=== PATIENT | female | born 1945 | race Caucasian/White ===

== ENCOUNTER 2016-07-03 13:48 | Emergency (ER) | payer MEDICARE ==
[2015-01-31 12:58] VITALS: BMI 30.2
[~2016-07-03 13:48] MED LIST: ALBUTEROL2.5 MG/3 M INH; ATROVENT 0.03%30 ML NS; BACLOFEN20 M1 PO; BAYER CHEWABLE81 MG PO; BUMEX 1 MG TAB1 MG PO; BUMEX2 MG PO; COUMADIN4 MG PO; ELAVIL25 MG PO; EZFE 200200 MG PO; FISH OIL 1,0001 CA1 PO; K-DUR20 MEQ PO; LANTUS SOL100 UNIT/1 SC; LANTUS SOL100 UNIT/1 SQ; LEVAQUIN750 MG PO; LEVOTHROID50 MCG PO; LEXAPRO20 MG PO; LISINOPRIL10 MG PO; MICRO-K10 MEQ PO; OS-CAL500 MG PO; OYSCO 500+D TAB1 TAB PO; PAMELOR 25 MG C25 MG PO; PRAVACHOL40 MG PO; TOPAMAX25 MG PO; TOPIRAGEN50 MG PO; TOPROL XL50 MG PO; TRAVATAN Z2.5 ML EACH EYE; VITAMIN B-1250 MCG PO; VITAMIN D31000 UNIT PO
[2016-07-03 15:52] LABS: BASOPHILS 0.5 % (0.0-2.0); EOSINOPHILS 2.2 % (0-7); HEMOGLOBIN 11.1 g/dL (12-16); IMMATURE GRANULOCYTES 0.3 % (0-5); LYMPHOCYTES 15.9 % (15-50); MCH 28.7 pg (26.0-34.0); MCHC 30.8 g/dL (31.0-37.0); MEAN PLATELET VOLUME 11.7 fL (7.4-10.4); MONOCYTES 6.7 % (2-11); NEUTROPHILS 74.4 % (40-80); PLATELET COUNT 209 10x3/uL (130-400); RBC 3.87 10x6/uL (4.00-5.40); RDW 16.4 % (11.5-14.5); WBC 11.6 10x3/uL (4.8-10.8)
[2016-07-03 16:10] LABS: ALBUMIN 3.5 g/dL (3.4-5.0); ANION GAP 12.4 mmol/L (8-16); BILIRUBIN - TOTAL 0.4 mg/dL (0.2-1.3); CARBON DIOXIDE 28.1 mmol/L (21.0-32.0); CREATININE - SERUM 1.4 mg/dL (0.6-1.3); POTASSIUM - SERUM 4.5 mmol/L (3.5-5.1); PROTEIN - SERUM 6.9 g/dL (6.4-8.2)
== END 2016-07-03 17:20 | disposition home or self-care (01) ==
LOC: D.ER 13:48
PROVIDERS: Emergency Medicine
DX: R53.1 Weakness (principal); J44.9 Chronic obstructive pulmonary disease, unspecified; I10 Essential (primary) hypertension; E11.9 Type 2 diabetes mellitus without complications; Z79.4 Long term (current) use of insulin

== ENCOUNTER 2017-01-24 11:32 | Inpatient (IN) | payer MEDICARE ==
--- NOTE | ~2017-01-24 | HEMODYNAMI ---
PATIENT:NURA EATON MEDICAL RECORD: [id number] : 43 [facility] AD[facility] DATE: 01/24/17 Generatedon:01/25/20179:53 Patient name: NURA EATON Patient #: [id number] SSN: : 1945 Date of study: 01/25/2017 Page: Of Hemodynamic Procedure Report Patient Data Patient Demographics Procedure consent was obtained First Name: NURA Gender: Female Last Name: ANGELITO : 1945 [facility] Initial: THEA Age: 71 year(s) Patient #: [id number] Race: Unknown Additional ID: [id number] Contact details [address]: [address] [place] [address] [address] State: [place] City: [place] Zip code: [address] Past Medical History Allergies Allergen Reaction Date Comments Reported Penicillins 01/25/2017 Sulfa drugs 01/25/2017 Admission Admission Data Admission Date: 01/24/2017 Admission Time: 11:32 Room #: D.2108 Procedure Procedure Types Cath Procedure Peripheral Cath Diagnostic Procedure Cath Peripheral Abd/Extremity Extremities Bilat Lower Extremity Procedure Description Procedure Date Procedure Date: 01/25/2017 Procedure Start Time: 8:07 Procedure Staff Name Function Jhoana Alberto RT Family Assistant Jhoana Alberto RT Monitor Santi Escobedo RT Scrub Luca Tabares MD Performing Physician Iona Alvarez RN Nurse Procedure Data Cath Procedure Fluoroscopy Diagnostic fluoroscopy Total fluoroscopy Time: 8.5 time: 8.5 min min Diagnostic fluoroscopy Total fluoroscopy dose: dose: 1168 mGy 1168 mGy Contrast Material Contrast Material Type Amount (ml) Isovue 300 185 Entry Location Entry Primary Successful Side Size Upsize Upsize Entry Closure Succes sful Closure Location (Fr) 1 (Fr) 2 (Fr) Remarks Device Remarks Femoral Right 5 Fr artery Femoral Exoseal artery Diagnostic catheters Device Type Used For End Catheter Placement Merit ULTRA BOLUS FLUSH 5Fr 65CM catheter Procedure Medications Medication Administration Route Dosage Lidocaine 1% added to field 20 Oxygen NC 3 l/min Heparin Flush Bag added to field 3 (1000units/500ml NS) Hemodynamics Rest Snapshots Pre Cath Intra NCS Post Cath Vital Signs Time Heart Resp SPO2 NIBP (mmHg) Rhythm Pain Sedation Rate (ipm) (%) Status Level (bpm) 7:51:10 60 20 100 Measuring NSR 0 (11) 10(A) , No pain 7:51:57 59 27 100 194/67(139) NSR 0 (11) 10(A) , No pain 7:56:30 57 18 100 180/71(150) NSR 0 (11) 10(A) , No pain 8:01:02 65 17 100 185/68(138) NSR 0 (11) 10(A) , No pain 8:05:41 57 19 100 169/66(128) NSR 0 (11) 10(A) , No pain 8:10:17 55 23 100 172/59(117) NSR 0 (11) 10(A) , No pain 8:14:47 56 18 100 150/52(112) NSR 0 (11) 10(A) , No pain 8:19:04 98 128/58(91) NSR 0 (11) 10(A) , No pain 8:23:20 59 14 98 123/53(86) NSR 0 (11) 10(A) , No pain 8:27:42 60 10 97 115/49(78) NSR 0 (11) 10(A) , No pain 8:31:56 58 14 97 113/51(87) NSR 0 (11) 10(A) , No pain 8:36:14 56 15 97 121/49(83) NSR 0 (11) 10(A) , No pain 8:40:30 59 14 96 110/52(89) NSR 0 (11) 10(A) , No pain 8:44:46 56 15 98 118/48(92) NSR 0 (11) 10(A) , No pain 8:49:04 57 15 99 122/50(87) NSR 0 (11) 10(A) , No pain 8:53:24 57 17 100 134/50(92) NSR 0 (11) 10(A) , No pain 8:57:44 59 6 100 141/64(104) NSR 0 (11) 10(A) , No pain 9:02:08 60 15 100 158/63(112) NSR 0 (11) 10(A) , No pain 9:06:31 62 15 100 120/54(85) NSR 0 (11) 10(A) , No pain 9:10:51 61 14 99 121/51(93) NSR 0 (11) 10(A) , No pain 9:15:11 61 15 98 112/48(82) NSR 0 (11) 10(A) , No pain 9:19:25 61 15 100 122/50(79) NSR 0 (11) 10(A) , No pain 9:23:39 60 14 100 107/50(76) NSR 0 (11) 10(A) , No pain 9:27:53 61 15 100 123/50(90) NSR 0 (11) 10(A) , No pain 9:32:07 100 107/50(77) NSR 0 (11) 10(A) , No pain 9:36:25 98 106/41(76) NSR 0 (11) 10(A) , No pain Medications Time Medication Route Dose Verified Delivered Reason Notes Effec tiveness by by 8:00:19 Lidocaine 1% added 20ml Iona Segovia for local to vial Antonio Tabares MD anesthetic field RN 8:00:42 Oxygen NC 3 Iona Iona used for l/min Antonio Alvarez water pollution control inspector RN 8:00:51 Heparin Flush added 3BAGS Iona Segovia used for Bag to Antonio Tabares MD procedure (1000units/500ml field RN NS) Procedure Log Time Note 7:10:13 Use device set IR Diagnostic 7:37:36 Micropuncture VSI 4FR kit opened to sterile field. 7:37:37 Robin DOC .035 guide wire opened to sterile field. 7:37:38 Terumo 5Fr Reagan Sheath opened to sterile field. 7:37:41 Robin ORTIZ 260 guide wire opened to sterile field. 7:37:42 Sterile Angiographic Pack opened to sterile field. 7:37:43 Bag Decanter opened to sterile field. 7:37:44 Acist Manifold opened to sterile field. 7:37:45 Acist Hand Control opened to sterile field. 7:37:46 Acist Syringe opened to sterile field. 7:38:27 Time tracking: Regular hours 7:38:37 Plan of Care:Hemodynamics will remain stable., Cardiac rhythm will remain stable., Comfort level will be maintained., Respiratory function will remain adequate., Patient/ family verbilizes understanding of procedure., Procedure tolerated without complication., Recovers from procedure without complications.. 7:38:48 Patient received from Med II to IR Alert and oriented. Tansferred to table in Supine position. 7:38:53 Signed procedure consent form obtained from patient. 7:38:59 H&P Date Dictated: 01/25/2017 Within 30 days and on chart.. 7:39:04 Family in waiting room. 7:39:07 Patient NPO since Midnight. 7:39:35 Is the patient allergic to Iodine/contrast media? No. 7:39:51 Is patient on blood thinner?Yes 7:42:04 7:42:05 ----Pre-sedation anethsthesia assessment.---- 7:42:07 Snore? Yes 7:42:12 Dentures? Yes ? 7:42:47 Patient diabetic? Yes. 7:42:54 If diabetic: On Metformin? No 7:43:23 Sleep apnea? No 7:43:26 Deviated septum? No 7:43:30 Opens mouth fully? Yes 7:43:32 Sticks out tongue? Yes 7:43:41 Airway obstruction? No ? 7:43:49 IV patent on arrival in left hand with 0.9% NaCl at [facility]. 7:44:03 7:44:11 Right groin area was prepped with chlora-prep and draped in sterile fashion 7:44:20 Left groin area was prepped with chlora-prep and draped in sterile fashion 7:45:05 Patient allergic to Penicillins 7:45:13 Patient allergic to Sulfa drugs 7:45:15 7:49:19 ECG and BP/O2 sat monitors applied to patient. 7:49:20 Vital chart was started 7:49:21 Baseline sample Acquired. 7:49:23 7:49:23 Full Disclosure recording started 7:54:40 A [employer] ULTRA BOLUS FLUSH 5Fr 65CM catheter was advanced over the wire and used for . 8:00:19 Lidocaine 1% 20ml vial added to field was administered by Luca Tabares MD; for local anesthetic; 8:00:42 Oxygen 3 l/min NC was administered by Iona Alvarez RN; used for procedure; 8:00:51 Heparin Flush Bag (1000units/500ml NS) 3BAGS added to field was administered by Luca Tabares MD; used for procedure; 8:04:32 Physician arrived 8:05:51 --------ALL STOP TIME OUT------ 8:05:52 Final Timeout: patient, procedure, and site verified with staff and physician. All members of the team are in agreement. 8:07:28 Physical assessment completed. ASA score P 3 - A patient with severe systemic disease as per Luca Tabares MD. 8:07:34 Sedation plan: IV Moderate Sedation Versed, Fentanyl 8:07:42 Procedure started. 8:07:46 Local anesthetic to right femoral artery with Lidocaine 1% by Luca Tabares MD.INITIAL ACCESS ONLY 8:12:03 Arterial access obtained using ultrasound guidance. 8:12:20 A 5 Fr sheath was inserted into the Right Femoral artery 8:15:56 Terumo ANGLE 260cm glide wire opened to sterile field. 8:17:02 Terumo TORQUE DEVICE PLASTIC .038 opened to sterile field. 8:18:18 Terumo 5FR ANGLED 65CM glide catheter opened to sterile field. 8:21:07 Trailblazer 0.035 catheter opened to sterile field. 8:26:39 Angiography was performed. 8:29:46 BasixTOUCH Inflation Syringe opened to sterile field. 8:29:47 Terumo 5Fr Reagan Sheath opened to sterile field. 8:37:02 Inflation number: 1 A Cordis Powerflex Pro 4.0 x 40 x 135cm balloon was prepped and advanced across the Undefined lesion 1 on undefined graft 1, then inflated to 18 MARBELLA for 0:10 (min:sec). 8:43:28 Terumo 7Fr Reagan Destination Sheath opened to sterile field. 8:50:36 Terumo ANGLE 180L glide wire opened to sterile field. 9:28:33 Terumo 5Fr Reagan Sheath opened to sterile field. 9:28:46 Cordis 5Fr Exoseal opened to sterile field. 9:30:33 Sheath removed intact; hemostasis achieved with Exoseal to the Femoral artery. 9:30:33 A sheath was inserted into the Femoral artery 9:30:46 Procedure ended.(Physican Out) 9:32:14 Fluoroscopy time 08.50 minutes. 9:32:23 Fluoroscopy dose: 1168 mGy 9:32:23 Flurop Dose total: 1168 9:32:29 Contrast amount:Isovue 300 185ml. 9:32:30 Sharps counted by scrub and verified by R.N. 9:32:32 Procedure and supply charges have been captured, reviewed, submitted and are correct. 9:38:19 Vital chart was stopped 9:38:23 Full Disclosure recording stopped Intervention Summary Intervention Notes Time ActionType Lesion and Equipment Action# Pressure Duration Attributes Used 8:37:02 Inflate Undefined Cordis 1 18 00:10 balloon lesion 1 on Powerflex undefined Pro 4.0 x graft 1 40 x 135cm balloon Device Usage Item Name Manufacture Quantity Catalog Number Hospital Part Current Min imal Lot# / Charge Number Stock Stock Serial# Code Micropuncture VSI VASCULAR 1 [id number] 5 VSI 4FR kit SOLUTIONS Cook DOC .035 [facility] 1 D82041 901880 706076 5 [id number] guide wire Terumo 5Fr Terumo 2 [id number] 292485 908959 176849 40 Reagan Sheath Cook ORTIZ [facility] 1 C77403 586010 012512 5 [id number] 260 guide wire Sterile Cardinal 1 [id number] 136557 521826 5 Angiographic Health Pack Bag Decanter Microtek 1 2002S 603787 29975 278039 5 Medical Inc[employer] Acist Acist 1 96343 298664 401448 674251 5 Manifold [employer] Systems Inc Acist Hand Acist 1 67996 194426 268328 071704 5 Control Medical Systems Inc Acist Syringe Acist 1 03048 507203 126557 408859 20 Medical Systems Inc Merit ULTRA Merit 1 [id number] 361275 659709 5 BOLUS FLUSH Medical 5Fr 65CM catheter Terumo ANGLE Terumo 1 IB4752 403046 866774 382496 5 260cm glide wire Terumo TORQUE [place] 1 TD01 274735 562383 850066 5 DEVICE Scientific PLASTIC .038 Terumo 5FR Terumo 1 CG507 257700 673095 5 ANGLED 65CM glide catheter Trailblazer Medtronic 1 ASC-035-135 450530 99200 455028 5 0.035 [facility] Merit 1 BD6121 852014 234829 029942 5 Inflation Medical Syringe Cordis Cardinal 1 [id number] 401707 698039 564515 5 Powerflex Pro Health 4.0 x 40 x 135cm balloon Terumo 7Fr Terumo 1 RSR04 701852 685768 331986 5 Reagan Destination Sheath Terumo ANGLE Terumo 1 HB4236 053219 752467 252485 5 180L glide wire Cordis 5Fr Cardinal 1 EX500 919410 497517 810438 10 [id number] [facility] Signature Audit [place] Stage Time Signature Unsigned Intra-Procedure 01/25/2017 [facility] 9:38:15 AM RT(R) (R) (CV) 01/25/2017 9:51:59 AM Intra-Procedure 01/25/2017 Jhoana Alberto 9:53:26 AM RT(R) Signatures Monitor : Jhoana Alberto RT Signature : Date : Time : [facility] [address] [place] [address]
--- NOTE | ~2017-01-24 | HEMODYNAMI ---
PATIENT:NURA EATON MEDICAL RECORD: [id number] : 43 LOCATION:[facility] [address] [id number] ADMISSION DATE: 01/24/17 Generatedon:01/29/201712:53 Patient name: NURA EATON Patient #: [id number] SSN: : 1945 Date of study: 01/29/2017 Page: Of Hemodynamic Procedure Report Patient Data Patient Demographics Procedure consent was obtained First Name: NURA Gender: Female Last Name: ANGELITO : 1945 Middle Initial: THEA Age: 71 year(s) Patient #: [id number] Race: Unknown Additional ID: [id number] Contact details Address: [address] [place] [address] [address]REET State: [place] City: [place] Zip code: [address] Past Medical History Allergies Allergen Reaction Date Comments Reported Penicillins 01/25/2017 Sulfa drugs 01/25/2017 Admission Admission Data Admission Date: 01/24/2017 Admission Time: 15:55 Room #: D.CV08 Procedure Procedure Types Cath Procedure Peripheral Cath Diagnostic Procedure Miscellaneous Procedure Description Procedure Date Procedure Date: 01/29/2017 Procedure Start Time: 12:32 Procedure Staff Name Function Gumaro Sierra MD Performing Physician Bertha Bernard RT Scrub Iona Alvarez RN Nurse Santi Escobedo RT Monitor Procedure Data Cath Procedure Fluoroscopy Diagnostic fluoroscopy Total fluoroscopy Time: 19 time: 19 min min Diagnostic fluoroscopy Total fluoroscopy dose: 357 dose: 357 mGy mGy Contrast Material Contrast Material Type Amount (ml) Isovue 300 85 Procedure Medications Medication Administration Route Dosage Versed I.V. 1 mg Fentanyl I.V. 50 mcg Heparin Bolus I.V. 4000 units Nitroglycerin IC/IA I.A. 250 Vancomycin I.V.P.B 500 mg Versed I.V. 1 mg Fentanyl I.V. 50 mcg Nitroglycerin IC/IA I.A. 200 Versed I.V. 0.5 mg Fentanyl I.V. 25 mcg Versed I.V. 0.5 mg Fentanyl I.V. 25 mcg Versed I.V. 1 mg Fentanyl I.V. 50 mcg Hemodynamics Rest Heart Rate: 71 (bpm) Snapshots Pre Cath Intra NCS Post Cath Vital Signs Time Heart Resp SPO2 NIBP (mmHg) Rhythm Pain Sedation Rate (ipm) (%) Status Level (bpm) 10:45:31 70 14 100 Measuring NSR 0 (11) 10(A) , No pain 10:45:54 70 19 100 185/74(136) NSR 0 (11) 10(A) , No pain 10:50:24 67 14 100 172/72(121) NSR 0 (11) 10(A) , No pain 10:54:53 70 18 100 172/70(120) NSR 0 (11) 10(A) , No pain 10:59:15 69 26 100 163/69(121) NSR 0 (11) 10(A) , No pain 11:04:14 66 11 100 Measuring NSR 0 (11) 10(A) , No pain 11:04:53 69 18 100 155/64(118) NSR 0 (11) 10(A) , No pain 11:09:17 69 16 100 153/70(112) NSR 0 (11) 10(A) , No pain 11:13:39 77 98 145/65(103) NSR 0 (11) 10(A) , No pain 11:18:03 98 138/59(100) NSR 0 (11) 10(A) , No pain 11:22:24 69 15 98 121/55(92) NSR 0 (11) 10(A) , No pain 11:26:40 70 14 97 105/51(79) NSR 0 (11) 10(A) , No pain 11:30:48 70 14 98 122/59(86) NSR 0 (11) 10(A) , No pain 11:35:03 70 13 95 101/47(65) NSR 0 (11) 10(A) , No pain 11:39:11 72 12 97 106/54(71) NSR 0 (11) 10(A) , No pain 11:43:23 71 13 97 94/46(77) NSR 0 (11) 10(A) , No pain 11:47:29 72 20 97 96/52(68) NSR 0 (11) 10(A) , No pain 11:51:35 70 24 98 105/51(79) NSR 0 (11) 10(A) , No pain 11:55:47 69 20 98 104/47(70) NSR 0 (11) 10(A) , No pain 11:59:57 71 23 98 99/49(66) NSR 0 (11) 10(A) , No pain 12:04:05 72 12 98 111/55(84) NSR 0 (11) 10(A) , No pain 12:08:19 71 13 98 113/48(73) NSR 0 (11) 10(A) , No pain 12:12:28 73 10 99 124/59(97) NSR 0 (11) 10(A) , No pain 12:16:47 71 21 98 115/54(75) NSR 0 (11) 10(A) , No pain 12:21:01 72 12 98 108/54(82) NSR 0 (11) 10(A) , No pain 12:25:10 70 23 99 122/53(86) NSR 0 (11) 10(A) , No pain 12:29:24 71 99 123/61(87) NSR 0 (11) 10(A) , No pain 12:34:23 71 9 100 Measuring NSR 0 (11) 10(A) , No pain 12:34:32 71 9 100 133/62(96) NSR 0 (11) 10(A) , No pain 12:38:50 71 17 98 108/54(75) NSR 0 (11) 10(A) , No pain 12:42:59 70 28 99 112/56(75) NSR 0 (11) 10(A) , No pain 12:47:11 70 13 100 111/56(73) NSR 0 (11) 10(A) , No pain 12:51:23 111/56(84) NSR 0 (11) 10(A) , No pain Medications Time Medication Route Dose Verified Delivered Reason Notes Effectiv eness by by 11:06:29 Versed I.V. 1 mg Gumaro Monson for Rigo Alvarez RN sedation 11:06:47 Fentanyl I.V. 50 Gumaro Monson jelani Alvarez RN, MD 11:15:32 Heparin Bolus I.V. 4000 Gumaro Monson units Rigo Alvarez RN, MD 11:24:18 Nitroglycerin I.A. 250 Gumaro Monson IC/IA Rigo Alvarez RN, MD 11:24:44 Vancomycin I.V.P.B 500mg Gumaro Alvarez RN, MD 11:29:19 Versed I.V. 1 mg Gumaro Monson for Rigo Alvarez RN sedation 11:29:30 Fentanyl I.V. 50 Gumaro Alvarez RN, MD 11:41:08 Nitroglycerin I.A. 200 Gumaro Monson IC/IA Rigo Alvarez RN, MD 11:52:49 Versed I.V. 0.5 Gumaro Iona for mg Rigo Alvarez RN sedation 11:53:02 Fentanyl I.V. 25 Gumaro Alvarez RN, MD 12:12:32 Versed I.V. 0.5 Gumaro Capellanody for mg Rigo Alvarez RN sedation 12:12:44 Fentanyl I.V. 25 Gumaro Alvarez RN, MD 12:32:56 Versed I.V. 1 mg Gumaro Monson for Rigo Alvarez RN sedation 12:33:07 Fentanyl I.V. 50 Gumaro Alvarez RN, MD Procedure Log Time Note 10:19:47 Santi Escobedo RT (R) (CV) sent for patient. Start room use. 10:19:56 Time tracking: Regular hours 10:20:01 Plan of Care:Hemodynamics will remain stable., Cardiac rhythm will remain stable., Comfort level will be maintained., Respiratory function will remain adequate., Patient/ family verbilizes understanding of procedure., Procedure tolerated without complication., Recovers from procedure without complications.. 10:20:12 Patient received from CVICU to IR Alert and oriented. Tansferred to table in Supine position. 10:20:13 Correct patient and procedure confirmed by team. 10:20:14 Signed procedure consent form obtained from patient. 10:20:15 ECG and BP/O2 sat monitors applied to patient. 10:20:16 Full Disclosure recording started 10:20:16 - 10:20:19 H&P Date Dictated: 01/29/2017 Within 30 days and on chart.. 10:20:20 Pre-procedure instructions explained to patient. 10:20:20 Pre-op teaching completed and patient verbalized understanding. 10:20:21 Family in waiting room. 10:20:23 Patient NPO since Midnight. 10:20:42 Is the patient allergic to Iodine/contrast media? No. 10:20:44 Was the patient premedicated? No 10:20:44 Is patient on blood thinner?Yes 10:20:47 Patient diabetic? Yes. 10:20:48 - 10:20:48 ----Pre-sedation anethsthesia assessment.---- 10:20:51 Previous problem with sedation/anesthesia? No ? 10:20:52 Snore? Yes 10:20:54 Sleep apnea? No 10:20:56 Deviated septum? No 10:20:59 Opens mouth fully? Yes 10:21:00 Sticks out tongue? Yes 10:21:04 Airway obstruction? Yes ? 10:21:06 Dentures? Yes ? 10:21:10 Pre procedure: right dorsailis pedis pulse Doppler 10:21:14 Pre procedure: left dorsailis pedis pulse Doppler 10:21:18 Pre procedure: right posterior tibial pulse Doppler 10:21:21 Pre procedure: left posterior tibial pulse Doppler 10:21:26 Use device set IR Diagnostic 10:21:27 Sterile Angiographic Pack opened to sterile field. 10:21:28 Bag Decanter opened to sterile field. 10:43:42 Vital chart was started 10:43:43 Baseline sample Acquired. 10:43:48 Rhythm: sinus rhythm 11:01:23 Patient pain scale 0/10 no pain. 11:01:29 IV patent on arrival in left forearm with 0.9% NaCl at O. 11::30 Sharps counted by scrub and verified by R.N. 11::31 Alarms reviewed by R. N. 11::36 Right groin area was prepped with betadine and draped in sterile fashio n 11::38 --------ALL STOP TIME OUT------ 11::39 Final Timeout: patient, procedure, and site verified with staff and physician. All members of the team are in agreement. 11:01:42 Right groin site verified by team. 11::46 Physical assessment completed. ASA score P 3 - A patient with severe systemic disease as per Gumaro Sierra MD. 11:01:51 Sedation plan: IV Moderate Sedation Versed, Fentanyl 11:02:06 Procedure started. 11:06:29 Versed 1 mg I.V. was administered by Iona Alvarez RN; for sedation; 11::47 Fentanyl 50 mcg I.V. was administered by Iona Alvarez RN; ; 11:09:[address] 260 .035 glide wire opened to sterile field. 11:09:51 CXI SUPPORT .035 135 CM STR catheter opened to sterile field. 11:09:53 Cook ORTIZ 260 guide wire opened to sterile field. 11:15:22 [place] Sci Choice PT Extra Support J 300cm .014 gu opened to sterile field. 11:15:32 Heparin Bolus 4000 units I.V. was administered by Iona Alvarez RN; ; 11:15:33 Copilot Bleedback Control Valve opened to sterile field. 11:21:43 Turbohawk 1 Small Atherectomy catheter opened to sterile field. 11:24:18 Nitroglycerin IC/IA 250 I.A. was administered by Iona Alvarez RN; ; 11:24:44 Vancomycin 500mg I.V.P.B was administered by Iona Alvarez RN; ; 11:29:19 Versed 1 mg I.V. was administered by Iona Alvarez RN; for sedation; 11:29:30 Fentanyl 50 mcg I.V. was administered by Iona Alvarez RN; ; 11:32:18 BasixTOUCH Inflation Syringe opened to sterile field. 11:33:47 Inflation number: 1 A Saber 4.0 x 4 x 150 balloon was prepped and advanced across the Undefined lesion 1 on undefined graft 1, then inflated 11:41:08 Nitroglycerin IC/IA 200 I.A. was administered by Iona Alvarez RN; ; 11:41:24 Inflation number: 1 A Saber 2.5 X 200 X 150 balloon was prepped and advanced across the Undefined1, then inflated 11:52:49 Versed 0.5 mg I.V. was administered by Iona Alvarez RN; for sedation; 11:52:54 Terumo ANGLE 260cm glide wire opened to sterile field. 11:53:02 Fentanyl 25 mcg I.V. was administered by Iona Alvarez RN; ; 12:12:28 Cordis SMART Flex 5 X 40 X 120 stent was deployed across Undefined1 . 12:12:32 Versed 0.5 mg I.V. was administered by Iona Alvarez RN; for sedation; 12:12:44 Fentanyl 25 mcg I.V. was administered by Iona Alvarez RN; ; 12:13:13 Inflation number: 2 A Cordis Powerflex Pro 5.0 x 40 x 135cm balloon was prepped and advanced across the Undefined1, then inflated 12:32:14 Local anesthetic to right femoral artery with Lidocaine 1% by Gumaro Sierra MD.INITIAL ACCESS ONLY 12:32:56 Versed 1 mg I.V. was administered by Iona Alvarez RN; for sedation; 12:33:07 Fentanyl 50 mcg I.V. was administered by Iona Alvarez RN; ; 12:33:12 MYNX DRILLING INSPECTOR 6FR/7FR opened to sterile field. 12:33:18 Cook BENTSON 145cm guide wire opened to sterile field. 12:35:48 Terumo 6Fr [place] Sheath opened to sterile field. 12:36:32 Procedure ended.(Physican Out) 12:39:33 Fluoroscopy time 19.00 minutes. 12:39:40 Fluoroscopy dose: 357 mGy 12:39:40 Flurop Dose total: 357 12:39:43 Sharps counted by scrub and verified by R.N. 12:39:45 Insertion/operative site no bleeding no hematoma. 12:39:48 Post-op/insertion site Right Femoral artery dressed using a 4 x 4 and Tegaderm. 12:39:58 Post right femoral artery:unchanged, hematoma 12:40:02 Post Procedure Pulses reassessed and unchanged 12:40:06 Post-procedure physical assessment completed. ASA score P 3 - A patient with severe systemic disease as per Gumaro Sierra MD. 12:40:08 Post procedure instruction explained to patient.Patient verbalizes understanding. 12:40:09 Procedure and supply charges have been captured, reviewed, submitted an d are correct. 12:52:33 Contrast amount:Isovue 300 85ml. 12:52:36 Report given to CVICU. 12:52:39 Patient transfered to CVICU with Bed. 12:53:10 Vital chart was stopped Intervention Summary Intervention Notes Time ActionType Lesion and Equipment Action# Pressure Duration Attributes Used 11:33:47 Inflate Undefined Saber 4.0 1 0 00:00 balloon lesion 1 on x 4 x 150 undefined balloon graft 1 11:41:24 Inflate Undefined1 Saber 2.5 1 0 00:00 balloon X 200 X 150 balloon 12:12:28 Deploy self Undefined1 Cordis 1 expanding SMART stent Flex 5 X 40 X 120 stent 12:13:13 Inflate Undefined1 Cordis 2 0 00:00 balloon Powerflex Pro 5.0 x 40 x 135cm balloon Device Usage Item Name Manufacture Quantity Catalog Number Hospital Part Current Min imal Lot# / Charge Number Stock Stock Serial# Code Sterile [place] 1 [id number] 5 Angiographic Health Pack Bag Decanter Microtek 1 [id number] 26688 102977 5 [employer] [facility] 1 [id number] 860398 981731 5 [id number] ROADRUNNER 260 .035 glide wire CXI SUPPORT [facility] 1 [id number] 167141 340636 5 [id number] .035 135 CM STR catheter [facility] 1 [id number] 733513 187264 5 [id number] 260 guide wire [place] Sci [place] 1 [id number] 636808 643163 356620 5 [id number] Choice PT Scientific Extra Support J 300cm .014 gu Copilot Parkinson 1 [id number] 411536 733390 750990 5 Bleedback Vascular Control Valve [place] 1 Ev3 1 H1-S 299806 3420079 514397 5 [id number] Small Atherectomy catheter BasixTOUCH [facility] [place] 1 [id number] 799308 530897 511782 5 Inflation Medical Syringe Saber 4.0 x Cardinal 1 [id number] 077499 178971 5 4 x 150 Health balloon Saber 2.5 X Cardinal 1 [id number] 313159 260003 5 200 X 150 Health balloon Terumo ANGLE Terumo 1 [id number] 110717 685971 079342 5 260cm glide wire Cordis SMART Cardinal 1 [id number] 420840 909981 0 77326 Flex 5 X 40 Health X 120 stent Cordis Cardinal 1 [id number] 697004 892782 741279 5 Powerflex Health Pro 5.0 x 40 x 135cm balloon MYNX DRILLING INSPECTOR Access 1 [id number] 420691 174418 5 [id number] 6FR/7FR Closure Cook [facility] 1 [id number] 186905 444286 5 [id number] 145cm guide wire Terumo 6Fr Terumo 1 [id number] 359183 021949 419526 40 [place] Sheath Signature Audit [place] Stage Time Signature Unsigned Intra-Procedure 01/29/2017 Santi 12:53:06 PM Gregg RT (R) (CV) Signatures Monitor : Santi Signature : Gregg RT Date : Time : [facility] [address] [place] [address]
--- NOTE | ~2017-01-24 | HEMODYNAMI ---
PATIENT:NURA EATON MEDICAL RECORD: [id number] : 43 LOCATION:D. D.2108 ADMISSION DATE: 01/24/17 Generatedon:01/28/201716:20 Patient name: NURA EATON Patient #: [id number] SSN: : 1945 Date of study: 01/28/2017 Page: Of Hemodynamic Procedure Report Patient Data Patient Demographics Procedure consent was obtained First Name: NURA Gender: Female Last Name: ANGELITO : 1945 [facility] Initial: THEA Age: 71 year(s) Patient #: [id number] Race: Unknown Additional ID: [id number] Contact details [address]: [address] [place] [address] [address] State: [place] City: [place] Zip code: [address] Past Medical History Allergies Allergen Reaction Date Comments Reported Penicillins 01/25/2017 Sulfa drugs 01/25/2017 Admission Admission Data Admission Date: 01/24/2017 Admission Time: 15:55 Room #: D.2108 Procedure Procedure Types Cath Procedure Peripheral Cath Diagnostic Procedure Miscellaneous Procedure Description Procedure Date Procedure Date: 01/28/2017 Procedure Start Time: 13:24 Procedure Staff Name Function Luca Tabares MD Performing Physician Bertha Bernard RT Scrub Iona Alvarez RN Nurse Santi Escobedo RT Monitor Procedure Data Cath Procedure Fluoroscopy Diagnostic fluoroscopy Total fluoroscopy Time: time: 26.1 min 26.1 min Diagnostic fluoroscopy Total fluoroscopy dose: 666 dose: 666 mGy mGy Entry Location Entry Primary Successful Side Size Upsize Upsize Entry Closure Succes sful Closure Location (Fr) 1 (Fr) 2 (Fr) Remarks Device Remarks Femoral Right 5 Fr 6 Fr artery Short Diagnostic catheters Device Type Used For End Catheter Placement Merit ULTRA BOLUS FLUSH 5Fr 65CM catheter Hemodynamics Rest Heart Rate: 64 (bpm) Snapshots Pre Cath Intra NCS Post Cath Vital Signs Time Heart Resp SPO2 NIBP (mmHg) Rhythm Pain Sedation Rate (ipm) (%) Status Level (bpm) 8:53:15 71 11 100 184/73(119) NSR 0 (11) 10(A) , No pain 13:05:44 66 19 100 186/55(122) NSR 0 (11) 10(A) , No pain 13:10:10 65 21 100 154/121(142) NSR 0 (11) 10(A) , No pain 13:14:34 66 26 100 175/74(146) NSR 0 (11) 10(A) , No pain 13:19:33 64 33 100 Measuring NSR 0 (11) 10(A) , No pain 13:20:04 66 17 100 177/73(144) NSR 0 (11) 10(A) , No pain 13:25:03 100 Measuring NSR 0 (11) 10(A) , No pain 13:25:40 100 167/78(92) NSR 0 (11) 10(A) , No pain 13:30:12 65 18 100 180/65(133) NSR 0 (11) 10(A) , No pain 13:34:45 66 20 99 162/72(116) NSR 0 (11) 10(A) , No pain 13:39:44 68 20 99 Measuring NSR 0 (11) 10(A) , No pain 13:40:04 69 21 99 175/71(126) NSR 0 (11) 10(A) , No pain 13:44:37 68 18 99 184/74(139) NSR 0 (11) 10(A) , No pain 13:49:05 71 14 99 175/80(126) NSR 0 (11) 10(A) , No pain 13:53:33 66 15 98 169/64(137) NSR 0 (11) 10(A) , No pain 13:57:55 70 15 97 146/67(119) NSR 0 (11) 10(A) , No pain 14:02:18 69 15 97 137/66(103) NSR 0 (11) 10(A) , No pain 14:06:34 67 16 97 147/67(107) NSR 0 (11) 10(A) , No pain 14:10:56 66 16 97 145/68(129) NSR 0 (11) 10(A) , No pain 14:15:18 66 15 98 154/68(134) NSR 0 (11) 10(A) , No pain 14:19:42 69 13 99 160/74(131) NSR 0 (11) 10(A) , No pain 14:24:07 72 3 100 178/80(123) NSR 0 (11) 10(A) , No pain 14:28:33 71 30 98 171/72(119) NSR 0 (11) 10(A) , No pain 14:32:55 71 9 97 144/71(119) NSR 0 (11) 10(A) , No pain 14:37:54 67 9 98 Measuring NSR 0 (11) 10(A) , No pain 14:37:58 67 6 98 149/59(94) NSR 0 (11) 10(A) , No pain 14:42:16 67 14 100 142/65(105) NSR 0 (11) 10(A) , No pain 14:46:38 66 14 100 151/67(117) NSR 0 (11) 10(A) , No pain 14:50:59 67 15 100 146/70(111) NSR 0 (11) 10(A) , No pain 14:55:20 66 13 100 160/71(113) NSR 0 (11) 10(A) , No pain 14:59:41 72 25 100 167/81(135) NSR 0 (11) 10(A) , No pain 15:03:52 68 9 100 136/66(113) NSR 0 (11) 10(A) , No pain 15:08:15 67 14 100 140/56(102) NSR 0 (11) 10(A) , No pain 15:12:31 64 18 100 132/58(113) NSR 0 (11) 10(A) , No pain 15:16:53 63 25 100 120/50(88) NSR 0 (11) 10(A) , No pain 15:21:09 65 100 131/55(79) NSR 0 (11) 10(A) , No pain 15:25:27 65 19 100 139/57(103) NSR 0 (11) 10(A) , No pain 15:29:39 64 14 100 124/60(97) NSR 0 (11) 10(A) , No pain 15:33:55 64 14 100 133/61(108) NSR 0 (11) 10(A) , No pain 15:38:54 65 14 100 Measuring NSR 0 (11) 10(A) , No pain 15:39:06 65 14 100 151/74(116) NSR 0 (11) 10(A) , No pain 15:43:24 67 13 100 171/86(146) NSR 0 (11) 10(A) , No pain 15:47:53 70 14 100 190/82(151) NSR 0 (11) 10(A) , No pain 15:52:25 68 14 100 195/89(142) NSR 0 (11) 10(A) , No pain 15:56:45 68 16 100 176/86(143) NSR 0 (11) 10(A) , No pain 16:01:13 67 14 100 185/84(155) NSR 0 (11) 10(A) , No pain 16:05:44 71 19 100 201/91(144) NSR 0 (11) 10(A) , No pain 16:10:18 71 16 99 217/96(168) NSR 0 (11) 10(A) , No pain 16:15:17 74 23 98 Measuring NSR 0 (11) 10(A) , No pain 16:16:17 73 16 100 201/99(122) NSR 0 (11) 10(A) , No pain Procedure Log Time Note 12:58:02 Santi [facility] RT (R) (CV) sent for patient. Start room use. 12:58:03 Time tracking: Regular hours 12:58:08 Plan of Care:Hemodynamics will remain stable., Cardiac rhythm will remain stable., Comfort level will be maintained., Respiratory function will remain adequate., Patient/ family verbilizes understanding of procedure., Procedure tolerated without complication., Recovers from procedure without complications.. 12:58:13 Patient received from Med II to IR Alert and oriented. Tansferred to table in Supine position. 12:58:14 Correct patient and procedure confirmed by team. 12:58:15 Signed procedure consent form obtained from patient. 12:58:16 ECG and BP/O2 sat monitors applied to patient. 12:58:20 - 12:58:29 H&P Date Dictated: 01/28/2017 H&P Addendum completed by physician on day of procedure. (MUST COMPLETE FOR ALL OUTPATIENTS). 12:58:30 Pre-procedure instructions explained to patient. 12:58:30 Pre-op teaching completed and patient verbalized understanding. 12:58:32 Family in waiting room. 12:58:33 Patient NPO since Midnight. 12:58:37 Is the patient allergic to Iodine/contrast media? No. 12:58:40 Is patient on blood thinner?No 12:58:41 Patient diabetic? No. 12:58:42 - 12:58:43 ----Pre-sedation anethsthesia assessment.---- 12:58:45 Previous problem with sedation/anesthesia? No ? 12:58:46 Snore? Yes 12:58:48 Sleep apnea? No 12:58:50 Deviated septum? No 12:58:53 Opens mouth fully? Yes 12:58:56 Airway obstruction? Yes ? 12:58:58 Airway obstruction? No ? 12:58:59 Sticks out tongue? Yes 12:59:03 Dentures? Yes ? 12:59:09 Pre procedure: right dorsailis pedis pulse Doppler 12:59:12 Pre procedure: left dorsailis pedis pulse Doppler 12:59:16 Pre procedure: right posterior tibial pulse Doppler 12:59:19 Pre procedure: left posterior tibial pulse Doppler 12:59:25 Patient pain scale 0/10 no pain. 12:59:30 IV patent on arrival in left forearm with 0.9% NaCl at [facility]. 12:59:35 Right groin area was prepped with chlora-prep and draped in sterile fashion 12:59:37 Alarms reviewed by R. N. 12:59:45 Sharps counted by scrub and verified by R.N. 13:00:15 Use device set IR Diagnostic 13:00:18 Sterile Angiographic Pack opened to sterile field. 13:00:19 Bag Decanter opened to sterile field. 13:00:20 Acist Manifold opened to sterile field. 13:00:20 Acist Hand Control opened to sterile field. 13:00:21 Acist Syringe opened to sterile field. 13:04:09 Vital chart was started 13:04:10 Baseline sample Acquired. 13::13 Rhythm: sinus rhythm 13::21 Baseline sample Acquired. 13:23:02 Physician arrived 13::04 --------ALL STOP TIME OUT------ 13:23:05 Final Timeout: patient, procedure, and site verified with staff and physician. All members of the team are in agreement. 13:23:09 Right groin site verified by team. 13:23:16 Physical assessment completed. ASA score P 3 - A patient with severe systemic disease as per Luca Tabares MD. 13:23:21 Sedation plan: IV Moderate Sedation Versed, Fentanyl 13:24:45 Procedure started. 13:24:51 Local anesthetic to right femoral artery with Lidocaine 1% by Luca Tabares MD.INITIAL ACCESS ONLY 13:43:46 Terumo 5FR ANGLED 65CM glide catheter opened to sterile field. 13:43:50 A Merit ULTRA BOLUS FLUSH 5Fr 65CM catheter was advanced over the wire and used for . 13:43:51 Cook ORTIZ 260 guide wire opened to sterile field. 13:43:51 TUBING, CONTRAST INJCTN HI PRES opened to sterile field. 13:43:52 Cook DOC .035 guide wire opened to sterile field. 13:43:53 Terumo 5Fr [place] Sheath opened to sterile field. 13:43:54 Micropuncture VSI 4FR kit opened to sterile field. 13:43:54 EV3 NITINOL .018 300 2CM guide wire opened to sterile field. 13:43:56 Terumo ANGLE 180L glide wire opened to sterile field. 13:44:07 A 5 Fr sheath was inserted into the Right Femoral artery 13:48:35 Sheath upsized to a 6 Fr Short. 13:53:09 Terumo 6Fr [place] Destination Sheath opened to sterile field. 14:07:44 6 x 2.5 viabahn lot#[id number] 14:12:24 Inflation number: 1 A Cordis Powerflex Pro 5.0 x 20 x 80cm balloon was prepped and advanced across the Undefined1, then inflated to 0 MARBELLA for 0:00 (min:sec). 14:16:06 Merit INFLATION SYRINGE opened to sterile field. 14:26:21 Terumo ANGLE 260cm glide wire opened to sterile field. 14:26:31 CXI SUPPORT .035 135 CM STR catheter opened to sterile field. 14:33:28 [address] 260 .035 glide wire opened to sterile field. 14:40:10 Trailblazer 0.035 catheter opened to sterile field. 14:52:32 Baker Sci Choice PT Extra Support J 300cm .014 gu opened to sterile field. 14:56:12 Terumo 6Fr [place] Destination Sheath opened to sterile field. 15:41:49 CRAGG-AMI 30cm infusion catheter opened to sterile field. 15:44:34 SUTURE ETHILON 2-0 BLK MONO FS opened to sterile field. 15:48:43 Procedure ended.(Physican Out) 15:53:12 Fluoroscopy time 26.10 minutes. 15:53:17 Flurop Dose total: 666 15:53:17 Fluoroscopy dose: 666 mGy 15:58:35 Insertion/operative site no bleeding no hematoma. 15:58:38 Post-op/insertion site Right Femoral artery dressed using a 4 x 4 and Tegaderm. 15:58:47 Post right femoral artery:hematoma, soft 15:58:49 Post Procedure Pulses reassessed and unchanged 15:58:53 Post-procedure physical assessment completed. ASA score P 3 - A patient with severe systemic disease as per Luca Tabares MD. 16:18:55 Post procedure instruction explained to patient.Patient verbalizes understanding. 16:18:57 Procedure and supply charges have been captured, reviewed, submitted an d are correct. 16:19:07 Report given to CVICU. 16:19:12 Patient transfered to CVICU with Bed. 16:20:10 Vital chart was stopped Intervention Summary Intervention Notes Time ActionType Lesion and Equipment Action# Pressure Duration Attributes Used 14:12:24 Inflate Undefined1 Cordis 1 0 00:00 balloon Powerflex Pro 5.0 x 20 x 80cm balloon Device Usage Item Name Manufacture Quantity Catalog Number Hospital Part [facility] nimal Lot# / Charge Number Stock Stock Serial# Code Sterile Cardinal 1 [id number] 747053 5 Angiographic Health Pack Bag Decanter Microtek 1 2001S 867616 66224 876350 5 Medical Inc. Acist Manifold Acist 1 42157 344703 285360 010155 5 Medical Systems Inc Acist Hand Acist 1 57365 981861 246994 567684 5 Control Medical Systems Inc Acist Syringe Acist 1 47576 673351 443340 049352 20 Medical Systems Inc Terumo 5FR Terumo 1 CG507 468626 868383 5 ANGLED 65CM glide catheter Merit ULTRA Merit 1 [id number] 203285 648223 5 BOLUS FLUSH Medical 5Fr 65CM catheter [address] 1 J55948 866720 678974 5 1562723 guide wire TUBING, Merit 1 [id number] 756822 960841 262062 5 CONTRAST Medical INJCTN HI PRES Cook DOC .035 [facility] 1 V23374 039458 100288 5 7349601 guide wire Terumo 5Fr Terumo 1 PRH398 113365 529545 445882 40 [place] Sheath Micropuncture VSI VASCULAR 1 7266V 144844 853915 5 VSI 4FR kit SOLUTIONS EV3 NITINOL Ev3 1 S023645 289277 342678 5 .018 300 2CM guide wire Terumo ANGLE Terumo 1 SG6895 211524 939835 066157 5 180L glide wire Terumo 6Fr Terumo 2 RSR01 272857 91137 753358 5 [place] Destination Sheath Cordis Cardinal 1 [id number] 600427 127316 828864 5 Powerflex Pro Health 5.0 x 20 x 80cm balloon [facility] Medtronic 1 A08A 756671 23024 354268 5 INFLATION SYRINGE Terumo ANGLE Terumo 1 PG3072 788560 925921 775283 5 260cm glide wire CXI SUPPORT [facility] 1 F68943 479758 859930 5 6703934 .035 135 CM STR catheter [employer] 1 V14650 605639 588945 5 [address] 260 .035 glide wire Trailblazer Medtronic 1 ASC-035-135 596985 54088 444848 5 0.035 catheter Baker Sci Baker 1 [id number] 212237 234369 113293 5 [id number] Choice PT Scientific Extra Support J 300cm .014 los COSTARUTHIE Ev3 1 53464-60 868539 590240 5 30cm infusion catheter SUTURE ETHILON Ethicon 1 664 067913 408994 5 2-0 BLK MONO FS Signature Audit [place] Stage Time Signature Unsigned Intra-Procedure 01/28/2017 Santi 4:20:06 PM Gregg RT (R) (CV) Signatures Monitor : Santi Signature : Gregg RT Date : Time : [place] [id number] [facility] [place] [address]
[2017-01-24 13:22] LABS: BASOPHILS 0.8 % (0-2); EOSINOPHILS 3.7 % (0-7); HEMATOCRIT 36.1 % (36.0-48.0); HEMOGLOBIN 11.6 g/dL (12-16); IMMATURE GRANULOCYTES 0.2 % (0-5); LYMPHOCYTES 20.5 % (15-50); MCH 28.9 pg (26.0-34.0); MCHC 32.1 g/dL (31.0-37.0); MEAN PLATELET VOLUME 10.6 fL (7.4-10.4); MONOCYTES 6.4 % (2-11); NEUTROPHILS 68.4 % (40-80); PLATELET COUNT 214 10x3/uL (130-400); RBC 4.01 10x6/uL (4.00-5.40); RDW 16.4 % (11.5-14.5); WBC 8.8 10x3/uL (4.8-10.8)
[2017-01-24 13:30] LABS: APTT 32.3 SECONDS (22.8-39.4)
[2017-01-24 13:31] LABS: INR 1.57 (0.85-1.17); PROTIME 18.7 SECONDS (11.6-15.0)
[2017-01-24 13:41] LABS: ALBUMIN 3.4 g/dL (3.4-5.0); ANION GAP 10.3 mmol/L (8-16); BILIRUBIN - TOTAL 0.62 mg/dL (0.2-1.3); CALCIUM 8.9 mg/dL (8.5-10.1); CARBON DIOXIDE 27.8 mmol/L (21.0-32.0); CREATININE - SERUM 1.3 mg/dL (0.6-1.3); POTASSIUM - SERUM 4.1 mmol/L (3.5-5.1); PROTEIN - SERUM 7.8 g/dL (6.4-8.2)
--- NOTE | 2017-01-24 16:00 | NUR ---
PATIENT TO ROOM FROM RADIOLOGY. PATIENT IS ALERT AND ORIENTED AT THIS TIME. PATIENT HAS A L AC IV THAT IS SL AT THIS TIME. PATIENT BREATH SOUNDS CLEAR, S1S2 HEART SOUNDS NOTED. PATIENT DENIES ANY PAIN AT THIS TIME. WILL CONT TO MONITOR PATIENT. CPOC
[2017-01-24 16:55] VITALS: BP 177/63; BMI 30.5
--- NOTE | 2017-01-24 17:00 | NUR ---
HEPRAIN PROTOCL STARTED ON PATIENT IV INFUSING AT 13ML/HR. WILL CONT TO FOLLOW PROTOCOL. CPOC
--- NOTE | 2017-01-24 17:41 | NUR ---
PATIENT SITTING UP IN BED EATING DINNER. DENIES ANY NEEDS. CPOC
--- NOTE | 2017-01-24 19:15 | NUR ---
Received patient up in room ambulating. Several family members in room with her, visiting. Patient denies pain or discomfort at this time but states she has been having sharp pain in her left leg mostly her inner thigh and left groin. PIV in right AC is infusing Heparin @13ml/hr. Next PTT draw is due at 2300. Patient is alert and oriented x 4.
[2017-01-24 20:00] VITALS: BP 169/67
--- NOTE | 2017-01-24 22:30 | NUR ---
Assisted with HS hygiene care, changed into hospital gown, reminded of being NPO for surgery tomorrow. Patient verbalized understanding of same. Family has gone home. No voiced complaints.
[2017-01-25] VITALS (13 sets, daily range): BP systolic 122–185; BP diastolic 48–77
--- NOTE | 2017-01-25 00:19 | NUR ---
PTT was drawn @2300 with verbal result of 150, lab will redraw as last PTT was 32.3, redraw @2310 = 148.0, Heparin gtt was stopped for 30mins per protocol and Heparin gtt then reduced from 13ml/hr to 11ml/hr. PTT to be redrawn @0615.
--- NOTE | 2017-01-25 03:33 | NUR ---
Patient has been sleeping for past several hours, respirations easy and regular. No signs of distress. Remains NPO.
--- NOTE | 2017-01-25 04:38 | NUR ---
Discovered patient in bed, PIV out, catheter tip intact. Pressure applied to site. Hospital gown spattered with blood. Hospital gown changed. Will attempt to restart PIV. Heparin therefore not infusing at this time. Patient states it must have come out when she was rolling over in her sleep.
[2017-01-25 04:42] LABS: BASOPHILS 0.7 % (0-2); EOSINOPHILS 3.2 % (0-7); HEMOGLOBIN 11.7 g/dL (12-16); IMMATURE GRANULOCYTES 0.2 % (0-5); LYMPHOCYTES 15.3 % (15-50); MCH 28.9 pg (26.0-34.0); MCHC 32.5 g/dL (31.0-37.0); MCV 88.9 fL (80.0-100.0); MEAN PLATELET VOLUME 10.4 fL (7.4-10.4); MONOCYTES 7.2 % (2-11); NEUTROPHILS 73.4 % (40-80); PLATELET COUNT 209 10x3/uL (130-400); RBC 4.05 10x6/uL (4.00-5.40); RDW 16.6 % (11.5-14.5); WBC 8.5 10x3/uL (4.8-10.8)
[2017-01-25 04:56] LABS: INR 1.43 (0.85-1.17); PROTIME 17.4 SECONDS (11.6-15.0)
[2017-01-25 04:57] LABS: APTT 30.1 SECONDS (22.8-39.4)
[2017-01-25 05:02] LABS: ALBUMIN 3.5 g/dL (3.4-5.0); BILIRUBIN - TOTAL 0.5 mg/dL (0.2-1.3); CALCIUM 8.9 mg/dL (8.5-10.1); CARBON DIOXIDE 29.8 mmol/L (21.0-32.0); CREATININE - SERUM 1.6 mg/dL (0.6-1.3); PROTEIN - SERUM 7.6 g/dL (6.4-8.2)
--- NOTE | 2017-01-25 05:05 | NUR ---
New PIV sited in left forearm with #20 gauge. Heparin restarted at this time.
[2017-01-25 05:06] LABS: ANION GAP 10.5 mmol/L (8-16); POTASSIUM - SERUM 3.3 mmol/L (3.5-5.1)
--- NOTE | 2017-01-25 05:27 | NUR ---
PTT @0438 = 30.1 Unknown how long Heparin gtt was not infusing into patient. Could be 45 to 30mins due to when patient was last checked. Discussed with Charge Nurse. Given bolus of 3000 Units Heparin but rate was not changed, rate remains at 11ml/hr. Will recheck PTT in 6 hours.
--- NOTE | 2017-01-25 05:52 | NUR ---
Given Synthroid and Protonix with few sips of water, otherwise remains NPO.
--- NOTE | 2017-01-25 07:27 | NUR ---
PT SITTING UP IN BED, MADIE WITH IR ATTEMPTING PEDAL PULSES WITH DOPPLER. PT DENIES NEEDS ABOUT TO GO TO PROCEDURE
--- NOTE | 2017-01-25 08:26 | NUR ---
NICOTINE 14 MG PATCH ORDERED FOR SMOKING CESSATION.
--- NOTE | 2017-01-25 09:15 | NUR ---
PT STILL IN SURGERY
--- NOTE | 2017-01-25 09:40 | NUR ---
RECEIVED REPORT FROM OCTAVIO IN IR. SHE SAID THEY WERE UNABLE TO DO THE PROCEDURE AND WOULD BE TRYING AGAIN ON SATURDAY.. PT TO LAY FLAT FOR 4 HOURS AND RESTART THE HEPARIN DRIP IN 2 HOURS. WILL WAIT FOR PT TO ARRIVE BACK TO ROOM. SHE SAID DR BARRIGA WOULD PUT IN ORDERS FOR FURTHER INSTRUCTIONS
--- NOTE | 2017-01-25 10:00 | NUR ---
PT IS BACK FROM PROCEDURE. VERY LETHARGIC, STIMULI TO PAIN. VS ARE WNL DOCUMENTED IN PT CHART. R GROIN SITE MARKED FOR BLOOD TO CLOSEY MONITOR. ASSESSMENT COMPLETED AT THIS TIME. FAMILY AT BEDSIDE. WILL CONT TO MONITOR CLOSELY
--- NOTE | 2017-01-25 10:04 | NUR ---
WENT TO RETRIEVE PT AN ICE PACK FOR R GROIN ORDERED. WHEN RETURNING BACK TO PT ROOM R GROIN SITE HAS STARTED TO BLEED OUTSIDE MARKED LINE AND HAS SOAKDED THROUGH GAUZE DRESSING. FAMILY IS NOT PRESENT AT THIS TIME. HELD PRESSURE. PAIRER INSPECTOR AT BEDSIDE. 1020- PRESSURE STILL BEING APPLIED WITH NO LET UP OF BLOOD FLOW. PAIRER INSPECTOR WENT TO GET FEMSTOP 1025-FEMSTOP APPLIED TO R GROIN NO NOTED BLOOD FLOW SEEPING FROM R GROIN AREA. VS ARE STILL WNL WILL CONT TO MONITOR
--- NOTE | 2017-01-25 12:25 | NUR ---
LAB CALLED AND SAID THAT PT PTT WAS >200, THEY ARE COMING TO REDRAW TOMAKE SURE IT IS THAT HIGH. TRIED TO RELEASE AIR FROM FEMSTOP AND IMMEDIATE BLEEDING. REAPPLIED PRESSURE WITH FEMSTOP
--- NOTE | 2017-01-25 12:38 | NUR ---
PT STILL LAYING FLAT VS ARE WNL. DAUGHTER AT BEDSIDE. PALP PULSE IN R FOOT FEMSTOP STILL ON
--- NOTE | 2017-01-25 13:36 | NUR ---
RELEASED FEMSTOP AGAIN. NO BLEEDING NOTED. NEW 4X4 DSNG WITH TEGADERM PLACED. ASSESSED 10 MINUTES LATER AND APPLIED ICE, NO BLEEDING NOTED STILL. DAUGHTER IS LEAVING TO GO APPLICATION SUPPORT INTERN DAUGHTER FROM SCHOOL. WANTS ME TO CALL HER AND LET HER KNOW WHAT DR CUENCA SAYS WHEN HE ROUNDS, WILL DO.
--- NOTE | 2017-01-25 13:50 | NUR ---
PT R GROIN SITE STILL WNL. NO BLEEDING NOTED. WILL HAVE PT REMAIN FLAT FOR ADDITIONAL HOUR PRECAUTIONARY FOR ALL THE BLEEDING
[2017-01-25 15:56] LABS: BASOPHILS 0.4 % (0-2); EOSINOPHILS 1.9 % (0-7); HEMATOCRIT 37.7 % (36.0-48.0); HEMOGLOBIN 12.1 g/dL (12-16); IMMATURE GRANULOCYTES 0.2 % (0-5); LYMPHOCYTES 10.3 % (15-50); MCH 28.9 pg (26.0-34.0); MCHC 32.1 g/dL (31.0-37.0); MEAN PLATELET VOLUME 10.6 fL (7.4-10.4); MONOCYTES 5.9 % (2-11); NEUTROPHILS 81.3 % (40-80); PLATELET COUNT 196 10x3/uL (130-400); RBC 4.19 10x6/uL (4.00-5.40); RDW 16.8 % (11.5-14.5); WBC 9.6 10x3/uL (4.8-10.8)
--- NOTE | 2017-01-25 17:59 | NUR ---
PT SITTING UP IN BED EATING DINNER DENIES NEEDS FAMILY AT BEDSIDE WILL CONT TO MONITOR
--- NOTE | 2017-01-25 19:20 | NUR ---
RECEIVED REPORT, WILL ASSUME CARE OF PT, PT SLEEPING, BED IS LOW, SRX2, CALL LIGHT IN REACH, WILL CONTINUE PLAN OF CARE
--- NOTE | 2017-01-25 20:39 | NUR ---
[id number] UNITS OF HUMALOG
[2017-01-26] VITALS: BP 164/58
--- NOTE | 2017-01-26 02:08 | NUR ---
PT RESTING WELL WITHOUT C/O OR DISTRESS NOTED. CALL LIGHT WITHIN REACH. WILL CONT TO MONITOR.
[2017-01-26 04:00] VITALS: BP 168/58
[2017-01-26 05:26] LABS: BASOPHILS 0.4 % (0-2); EOSINOPHILS 2.9 % (0-7); HEMATOCRIT 36.2 % (36.0-48.0); HEMOGLOBIN 11.4 g/dL (12-16); IMMATURE GRANULOCYTES 0.2 % (0-5); LYMPHOCYTES 11.5 % (15-50); MCH 28.6 pg (26.0-34.0); MCHC 31.5 g/dL (31.0-37.0); MCV 90.7 fL (80.0-100.0); MEAN PLATELET VOLUME 10.3 fL (7.4-10.4); MONOCYTES 7.7 % (2-11); NEUTROPHILS 77.3 % (40-80); PLATELET COUNT 193 10x3/uL (130-400); RBC 3.99 10x6/uL (4.00-5.40); RDW 16.8 % (11.5-14.5)
[2017-01-26 05:49] LABS: INR 1.29 (0.85-1.17)
[2017-01-26 06:05] LABS: ALBUMIN 3.1 g/dL (3.4-5.0); ANION GAP 9.7 mmol/L (8-16); BILIRUBIN - TOTAL 0.58 mg/dL (0.2-1.3); CALCIUM 8.2 mg/dL (8.5-10.1); CARBON DIOXIDE 27.9 mmol/L (21.0-32.0); CREATININE - SERUM 1.3 mg/dL (0.6-1.3); POTASSIUM - SERUM 3.6 mmol/L (3.5-5.1); PROTEIN - SERUM 7.3 g/dL (6.4-8.2)
--- NOTE | 2017-01-26 07:20 | NUR ---
AM ROUNDING- RECIEVED REPORT FROM SUSTAINABILITY PROJECT COORDINATOR NURSE DG. PT IS CURRENTLY SITTING UP IN BED WITH EYES OPEN RESTING. PT STATES SHE IS SLEEPING. P TIS ON 02 AT 2L VIA NC. NO MONITOR. IV SEEN TO LEFT FOREARM WITH NS RUNNING AT 75CC. NO NEED AT THIS CURRENT TIME. BED IS IN LOW POSITION, SIDE RAILS ARE UP X2, AND CALL LIGHT IS IN REACH. WILL CONTINUE TO MONITOR AND CONTINUE WITH PLAN OF CARE.
[2017-01-26 08:21] VITALS: BP 144/47
[2017-01-26 12:19] VITALS: BP 141/51
--- NOTE | 2017-01-26 12:52 | NUR ---
PT IS CURRENTLY SITTING UP IN CHAIR WITH EYES OPEN RESTING. PT DENIES ANY NEED AT THIS TIME. CALL LIGHT IS IN REACH. WILL CONTINUE TO MONITOR.
--- NOTE | 2017-01-26 17:26 | NUR ---
PT IS CURRENTLY SITTING UP IN BED WITH EYES OPEN RESTING FINISHING DINNER. PT DENIES ANY NEED AT THIS CURRENT TIME. WILL CONTINUE TO MONITOR AND CONTINUE WITH PLAN OF CARE.
--- NOTE | 2017-01-26 19:20 | NUR ---
RECEIVED REPORT, WILL ASSUME CARE OF PT, PT VISITING WITH DAUGHTER,DENIES ANY NEEDS AT THIS TIME, BED IS LOW, SRX2, CALL LIGHT IN REACH, WILL CONTINUE PLAN OF CARE
[2017-01-26 20:00] VITALS: BP 172/60
--- NOTE | 2017-01-26 21:00 | NUR ---
[id number] 2UNITS ORDER
[2017-01-27] VITALS: BP 173/76
--- NOTE | 2017-01-27 02:33 | NUR ---
ASSESSMENT COMPLETE,SEE FLOWSHEET, PT SLEEPING, BED IS LOW, SRX2, CALL LIGHT IN REACH, WILL CONTINUE PLAN OF CARE
[2017-01-27 05:55] VITALS: BP 143/61
[2017-01-27 06:31] LABS: BASOPHILS 0.3 % (0-2); EOSINOPHILS 3.7 % (0-7); HEMATOCRIT 32.1 % (36.0-48.0); HEMOGLOBIN 10.2 g/dL (12-16); IMMATURE GRANULOCYTES 0.3 % (0-5); LYMPHOCYTES 16.8 % (15-50); MCH 28.8 pg (26.0-34.0); MCHC 31.8 g/dL (31.0-37.0); MCV 90.7 fL (80.0-100.0); MEAN PLATELET VOLUME 10.5 fL (7.4-10.4); MONOCYTES 8.3 % (2-11); NEUTROPHILS 70.6 % (40-80); PLATELET COUNT 177 10x3/uL (130-400); RBC 3.54 10x6/uL (4.00-5.40); RDW 16.7 % (11.5-14.5); WBC 7.3 10x3/uL (4.8-10.8)
[2017-01-27 06:38] LABS: INR 1.24 (0.85-1.17); PROTIME 15.5 SECONDS (11.6-15.0)
[2017-01-27 06:46] LABS: ALBUMIN 2.8 g/dL (3.4-5.0); ANION GAP 10.6 mmol/L (8-16); BILIRUBIN - TOTAL 0.62 mg/dL (0.2-1.3); CALCIUM 7.8 mg/dL (8.5-10.1); CARBON DIOXIDE 24.2 mmol/L (21.0-32.0); CREATININE - SERUM 1.2 mg/dL (0.6-1.3); POTASSIUM - SERUM 3.8 mmol/L (3.5-5.1); PROTEIN - SERUM 6.7 g/dL (6.4-8.2)
--- NOTE | 2017-01-27 07:46 | NUR ---
AM ROUNDING- RECIEVED REPORT FROM PROMOTIONS ASSOCIATE NURSE DG. PT IS CURRENTLY SITTING UP IN BED WITH EYES OPEN RESTING. PT DENIES ANY NEED AT THIS TIME. ON ROOM AIR. NO MONITOR. IV SEEN TO LEFT FOREARM WITH NS RUNNING AT 75CC. WILL CONTINUE TO MONITOR AND CONTINUE WITH PLAN CARE.
[2017-01-27 08:00] VITALS: BP 150/53
[2017-01-27 12:00] VITALS: BP 153/60
--- NOTE | 2017-01-27 15:39 | NUR ---
CONSENTS FOR PROCEDURE SIGNED BY PT AND PLACED IN CHART. PT INSTRUCTED TO NOT EAT OR DRINK ANYTHING AFTER MIDNIGHT. PT AGREES. NPO SIGN PLACED ON PTS DOOR.
[2017-01-27 16:00] VITALS: BP 138/66
--- NOTE | 2017-01-27 17:38 | NUR ---
PT IS CURRENTLY SITTING UP IN BED WITH EYES OPEN RESTING. PT DENIES ANY NEED AT THIS CURRENT TIME. WILL CONTINUE TO MONITOR.
--- NOTE | 2017-01-27 19:14 | NUR ---
RECEIVED REPORT, WILL ASSUME CARE OF PT, PT VISITING WITH FRIENDS, DENIES ANY NEEDS, BED IS LOW, SRX2, CALL LIGHT IN REACH, WILL CONTINUE PLAN OF CARE
[2017-01-27 20:00] VITALS: BP 165/65
[2017-01-28] VITALS (11 sets, daily range): BP systolic 110–202; BP diastolic 48–100
[2017-01-28 05:14] LABS: APTT 32.8 SECONDS (22.8-39.4); INR 1.13 (0.85-1.17); PROTIME 14.3 SECONDS (11.6-15.0)
[2017-01-28 05:16] LABS: BASOPHILS 0.4 % (0-2); EOSINOPHILS 3.3 % (0-7); HEMATOCRIT 32.7 % (36.0-48.0); HEMOGLOBIN 10.6 g/dL (12-16); IMMATURE GRANULOCYTES 0.3 % (0-5); LYMPHOCYTES 18.7 % (15-50); MCH 28.9 pg (26.0-34.0); MCHC 32.4 g/dL (31.0-37.0); MCV 89.1 fL (80.0-100.0); MEAN PLATELET VOLUME 10.6 fL (7.4-10.4); MONOCYTES 9.7 % (2-11); NEUTROPHILS 67.6 % (40-80); PLATELET COUNT 173 10x3/uL (130-400); RBC 3.67 10x6/uL (4.00-5.40); RDW 16.7 % (11.5-14.5); WBC 6.9 10x3/uL (4.8-10.8)
[2017-01-28 05:27] LABS: ANION GAP 12.4 mmol/L (8-16); CALCIUM 8.5 mg/dL (8.5-10.1); CARBON DIOXIDE 26.8 mmol/L (21.0-32.0); CHOL - HDL RATIO 3.1 ratio (2.3-4.1); CREATININE - SERUM 1.4 mg/dL (0.6-1.3); LDL-HDL RATIO 1.5 ratio (1.5-3.5)
[2017-01-28 05:37] LABS: HEMOGLOBIN A1C 6.8 % (4.8-6.0)
[2017-01-28 05:42] LABS: POTASSIUM - SERUM 3.2 mmol/L (3.5-5.1)
--- NOTE | 2017-01-28 05:48 | NUR ---
[id number] COVERAGE NEEDED
--- NOTE | 2017-01-28 10:38 | NUR ---
ARRIVE BACK TO ROOM FROM PROCEDURE. PROCEDURE UNSUCCESSFUL. REMAIN NPO. PLAN TO HAVE PROCEDURE AFTER LUNCH. FAMILY AT BEDSIDE. ALERT AND ORIENTED X4. DENIES PAIN OR SOB. REFUSE BUMEX. PATIENT STATES, "I TOOK THAT YESTERDAY AND I TAKE IT EVERY OTHER DAY AT HOME." DENIES ANY NEEDS. BED LOCKED AND LOW. CALL LIGHT IN REACH. TWO SIDERAILS UP. REFUSE SCDs.
--- NOTE | 2017-01-28 16:40 | NUR ---
TRANSFER TO ICU. BP 202/100. MEDS ORDER PER DR BARRIGA.
[2017-01-28 17:11] LABS: BASOPHILS 0.6 % (0-2); EOSINOPHILS 3.7 % (0-7); HEMATOCRIT 35.8 % (36.0-48.0); HEMOGLOBIN 11.5 g/dL (12-16); IMMATURE GRANULOCYTES 0.4 % (0-5); LYMPHOCYTES 18.8 % (15-50); MCH 28.9 pg (26.0-34.0); MCHC 32.1 g/dL (31.0-37.0); MCV 89.9 fL (80.0-100.0); MONOCYTES 6.3 % (2-11); NEUTROPHILS 70.2 % (40-80); PLATELET COUNT 168 10x3/uL (130-400); RBC 3.98 10x6/uL (4.00-5.40); RDW 16.5 % (11.5-14.5)
[2017-01-28 17:15] LABS: INR 1.15 (0.85-1.17); PROTIME 14.6 SECONDS (11.6-15.0)
[2017-01-28 17:43] LABS: APTT 97.1 SECONDS (22.8-39.4)
--- NOTE | 2017-01-28 18:00 | NUR ---
CALLING FOR COAGS. WILL RESULT SOON.
--- NOTE | 2017-01-28 19:00 | NUR ---
REPORT RECEIVED. SHIFT ASSESSMENT COMPLETED PER FLOW SHEET. PT LAYING IN BED AWAKE AND ALERT. 2 L 02 VIA NC. S1S2 PRESENT. TELEMETRY MONITORING HR OF 76. RADIAL BILAT AND RT PEDAL PULSES PALP. LT PEDAL PULSE AUDIBLE VIA DOPPLER. BREATHING PATTERN SHALLOW. RUL,RML AND VALERIO BREATH SOUNDS CLEAR, DIMINISHED IN RLL AND LLL. MUCOUS MEMBRANES MOIST. SKIN WARM AND DRY. RT GROIN SHEATH IN PLACE, DRESSING CDI, BRUISES NOTED AROUND SITE-MARKED WITH A SHARPIE, HEMATOMA PRESENT AND MARKED. BRUISES NOTED BUE. BROWN DISCOLORATION NOTED BLE. LT FOREARM PIV PATENT INFUSING NS AT 75 MLS/HR AND MANAGER POST PUMP. HEPARIN DRIP AT 500 UNITS/HR AND ALTEPLASE AT 10 CC/HR INFUSING VIA RT GROIN SHEATH. SEE FLOW SHEET FOR COMPLETE ASSESSMENT. WILL CONTINUE TO MONITOR.
--- NOTE | 2017-01-28 20:20 | NUR ---
PT LAYING IN BED RESTING. MEDS ADMINISTERED PER EMAR TOLERATED WELL. DENIES NEEDS. CALL LIGHT WITHIN REACH. BED IN LOWEST POSITION. WILL CONTINUE TO MONITOR.
--- NOTE | 2017-01-28 21:00 | NUR ---
NO VISITORS AT THIS TIME. WARM BLANKET PROVIDED PER REQUEST. DENIES FURTHER NEEDS. CALL LIGHT WITHIN REACH. BED IN LOWEST POSITION. WILL CONTINUE TO MONITOR.
--- NOTE | 2017-01-28 21:15 | NUR ---
CALLED DR. BARRIGA FOR HIGH BP AND CLARIFICATION OF ADMINISTRATION OF HEPARIN AND CATHFLO VIA RT GROIN. NEW ORDERS RECEIVED. SEE EMAR FOR DETAILS.
[2017-01-28 22:25] LABS: BASOPHILS 0.2 % (0-2); EOSINOPHILS 2.3 % (0-7); HEMATOCRIT 34.5 % (36.0-48.0); HEMOGLOBIN 10.9 g/dL (12-16); IMMATURE GRANULOCYTES 0.1 % (0-5); LYMPHOCYTES 22.7 % (15-50); MCH 28.1 pg (26.0-34.0); MCHC 31.6 g/dL (31.0-37.0); MCV 88.9 fL (80.0-100.0); MEAN PLATELET VOLUME 10.2 fL (7.4-10.4); MONOCYTES 9.5 % (2-11); NEUTROPHILS 65.2 % (40-80); RBC 3.88 10x6/uL (4.00-5.40); RDW 13.8 % (11.5-14.5); WBC 8.2 10x3/uL (4.8-10.8)
[2017-01-28 22:50] LABS: APTT 32.6 SECONDS (22.8-39.4); INR 1.26 (0.85-1.17); PLATELET COUNT 287 10x3/uL (130-400); PROTIME 15.7 SECONDS (11.6-15.0)
--- NOTE | 2017-01-28 23:00 | NUR ---
REASSESSMENT COMPLETED PER FLOW SHEET. NO ACUTE CHANGES NOTED. SEE FLOW SHEET FOR COMPLETE ASSESSMENT. CALL LIGHT WITHIN REACH. BED IN LOWEST POSITION. WILL CONTINUE TO MONITOR.
[2017-01-29] VITALS (21 sets, daily range): BP systolic 116–156; BP diastolic 41–83; BMI 30.4
--- NOTE | 2017-01-29 01:00 | NUR ---
PT LAYING IN BED RESTING, DENIES NEEDS AT THIS TIME. NO DISTRESS NOTED. RT PEDAL PULSE PALP. LT PEDAL PULSE AUDIBLE VIA DOPPLER. CALL LIGHT WITHIN REACH. BED IN LOWEST POSITION. WILL CONTINUE TO MONITOR.
--- NOTE | 2017-01-29 03:00 | NUR ---
REASSESSMENT COMPLETED PER FLOW SHEET. NO ACUTE CHANGES NOTED. VSS. ASSISTED WITH BEDPAN. 300 MLS OF YELLOW URINE OBTAINED. PARTIAL LINEN CHANGED. WATER PROVIDED. DENIES FURTHER NEEDS AT THIS TIME. CALL LIGHT WITHIN REACH. BED IN LOWEST POSITION. WILL CONTINUE TO MONITOR.
--- NOTE | 2017-01-29 05:00 | NUR ---
PT LAYING IN BED AWAKE AND ALERT, DENIES NEEDS AT THIS TIME. CALL LIGHT WITHIN REACH. BED IN LOWEST POSITION. WILL CONTINUE TO MONITOR.
[2017-01-29 05:11] LABS: BASOPHILS 0.3 % (0-2); HEMATOCRIT 33.9 % (36.0-48.0); HEMOGLOBIN 10.8 g/dL (12-16); IMMATURE GRANULOCYTES 0.2 % (0-5); LYMPHOCYTES 4.7 % (15-50); MCH 28.6 pg (26.0-34.0); MCHC 31.9 g/dL (31.0-37.0); MCV 89.7 fL (80.0-100.0); MEAN PLATELET VOLUME 10.8 fL (7.4-10.4); MONOCYTES 5.5 % (2-11); NEUTROPHILS 88.3 % (40-80); RBC 3.78 10x6/uL (4.00-5.40); RDW 16.8 % (11.5-14.5)
[2017-01-29 05:12] LABS: PLATELET COUNT 165 10x3/uL (130-400); WBC 10.4 10x3/uL (4.8-10.8)
[2017-01-29 05:28] LABS: INR 1.14 (0.85-1.17); PROTIME 14.5 SECONDS (11.6-15.0)
[2017-01-29 05:33] LABS: APTT 41.3 SECONDS (22.8-39.4)
--- NOTE | 2017-01-29 07:00 | NUR ---
REC'D REPORT AND RESUMED CARE, VSS, O2 VIA NC AT 2L, LT FA PIV WITH NS AT 75 AND DILAUDID TOE PULLER SET AT 0.2/Q10 WITH 4 MG LO, RIGHT GROIN SHEATH IN PLACE WITH CATHFLOW AND HEPARIN INFUSING, RIGHT GROIN WITH HEMATOMA, AREA SOFT, ASSESSMENT COMPLETED PER FLOWSHEET, DENIES PAIN, CALL LIGHT IN REACH, NO NEEDS AT THIS TIME
--- NOTE | 2017-01-29 07:30 | NUR ---
CALLED TO ROOM, BEDPAN PLACED, 50 CC DIANNE DRAINAGE TO SHRESTHA
--- NOTE | 2017-01-29 08:00 | NUR ---
PERIPHERAL PULSE CHECK RIGHT FOOT VIA DOPPLER, FAINT
--- NOTE | 2017-01-29 09:00 | NUR ---
RIGHT FOOT PULSE CHECK, VIA DOPPLER, STRONGER, BOTH PEDAL AND POSTERIOR TIBIAL
--- NOTE | 2017-01-29 10:15 | NUR ---
200 CC URINE TO BEDPAN, SKIN CARE GIVEN
--- NOTE | 2017-01-29 10:25 | NUR ---
TO ITR VIA BED WITH PERSONNEL X 1, AAO, NO SIGNS OF DISTRESS, PULES TO LEFT FOOT VIA DOPPLER, RIGHT FOOT PALPABLE
--- NOTE | 2017-01-29 10:35 | NUR ---
LAB HERE FOR PTT DRAW, SENT TO IR
--- NOTE | 2017-01-29 11:55 | NUR ---
FOR 10 AND 11 AM PATIENT IN IR PULSE CHECK BY IR STAFF
--- NOTE | 2017-01-29 13:30 | NUR ---
BACK FROM TWISTER IN, DRWOSEY, AROUSES TO VOICE, RECONNECTED TO MONITORS, RIGHT GROIN DRESSING IN PLACE, CDI, VSS, LEFT FOOT VIA DOPPLER, STRONG, EXTREMETY WARM AND PINK, WILL CONTINUE WITH POC
--- NOTE | 2017-01-29 13:59 | NUR ---
CALLED TO BEDSIDE, BEDPAN PLACED
--- NOTE | 2017-01-29 14:10 | NUR ---
200 CC DIANNE URINE TO BEDPAN
--- NOTE | 2017-01-29 15:10 | NUR ---
DAUGHTER AT BEDSIDE, STATUS UPDATED, DEMAMNDING TO SPEAK WITH MADIE LEPE OR DR. BARRIGA, RE: PROCEDURE, STATUS UPDATE GIVEN AND MADIE CALLED TO BEDSIDE
--- NOTE | 2017-01-29 16:00 | NUR ---
I AND O'S COMPLETED, VSS, SLEEPING WITH NO SIGNS OF DISTRESS, AROUSABLE TO VERBAL STIMULI, DENIES PAIN, CALL LIGHT IN REACH, NO OTHER NEEDS AT THIS TIME
--- NOTE | 2017-01-29 17:10 | NUR ---
CALLED TO BEDSIDE, PLACED ON BEDPAN
--- NOTE | 2017-01-29 17:26 | NUR ---
TO BEDSIDE, NOT READY TO COME OF BEDPAN, STATES 'I FALL ASLEEP AND PEE IN SECTIONS, CALL LIGHT IN REACH NO OTHER NEEDS AT THIS TIME
--- NOTE | 2017-01-29 19:00 | NUR ---
REPORT RECEIVED AND ASSESSMENT COMPLETED. SEE FLOWSHEET FOR FULL DETAILS. VSS. BRUISING PRESENT IN RIGHT GROIN. SOFT TO PALPATION. LEFT LOWER EXTREM HAS PULE EASILY FOUND WITH DOPPLER. WILL CONTINUE TO MONITOR THROUGHOUT SHIFT.
--- NOTE | 2017-01-29 21:00 | NUR ---
PTT RESULTS BACK. WILL ADJUST HEPARIN DRIP ACCORDINGLY. NO OTHER CHANGES AT THIS TIME
--- NOTE | 2017-01-29 23:00 | NUR ---
REASSESSMENT COMPLETED. SEE FLOWSHEET FOR FULL DETAILS. VSS. PEDAL PULSE IN LEFT FOOT NOW PALPABLE THOUGH WEAK. WILL CONTINUE TO MONITOR
[2017-01-30] VITALS (17 sets, daily range): BP systolic 116–168; BP diastolic 39–532
--- NOTE | 2017-01-30 01:00 | NUR ---
PT ASSISTED TO BEDPAN. NO OTHER CHANGES AT THIS TIME. WILL MONITOR
--- NOTE | 2017-01-30 03:00 | NUR ---
REASSESSMENT COMPLETED SEE FLOWSHEET FOR FULL DETAILS. LEFT PEDAL PULE FOUND WITH DOPPLER AT THIS TIME. WILL MONITOR
[2017-01-30 04:30] LABS: ANION GAP 10.3 mmol/L (8-16); CALCIUM 8.1 mg/dL (8.5-10.1); CARBON DIOXIDE 27.9 mmol/L (21.0-32.0); CREATININE - SERUM 1.2 mg/dL (0.6-1.3); POTASSIUM - SERUM 3.2 mmol/L (3.5-5.1)
--- NOTE | 2017-01-30 05:00 | NUR ---
NO CHANGES IN PATIENT STATUS AT THIS TIME. VSS. WILL MONITOR
--- NOTE | 2017-01-30 07:00 | NUR ---
REC'D REPORT AND RESUMED CARE, SLEEPING AROUSABLE TO LVERBAL STIMULI, VSS, DENIES PAIN AT THIS TIME, HEPARIN GTT INFUSING AT 600 U/HR, DILAUDID BLACKING MACHINE OPERATOR SET AT 0.2MG/10, NS AT 75 CC/HR, RIGHT GROIN SOFT AND NO PAIN TO TOUCH,ASSESSMENT COMPLETED PER FLOWSHEET, REPOSITIONED TO LEFT SIDE WITH HEELS FLOATED, ABLE TO PALPATE WEAK PEDAL PULSE ON LEFT, WHEN DOPPLERED VERY STRONG, EXTREMITY PINK AND WARM
--- NOTE | 2017-01-30 07:45 | NUR ---
CLEAR LIQUID DIET TO BEDSIDE
[2017-01-30 08:30] LABS: BASOPHILS 0.5 % (0-2); EOSINOPHILS 3.8 % (0-7); HEMATOCRIT 31.7 % (36.0-48.0); IMMATURE GRANULOCYTES 0.1 % (0-5); LYMPHOCYTES 8.3 % (15-50); MCH 28.7 pg (26.0-34.0); MCHC 31.5 g/dL (31.0-37.0); MCV 91.1 fL (80.0-100.0); MEAN PLATELET VOLUME 10.6 fL (7.4-10.4); MONOCYTES 7.9 % (2-11); NEUTROPHILS 79.4 % (40-80); PLATELET COUNT 153 10x3/uL (130-400); RBC 3.48 10x6/uL (4.00-5.40); WBC 7.8 10x3/uL (4.8-10.8)
--- NOTE | 2017-01-30 09:00 | NUR ---
SIOBHAN WITH IR HERE, DILAUDID CLOD PULLER DC'D, AND HEPARIN GTT STOPPED PER ORDER
--- NOTE | 2017-01-30 09:15 | NUR ---
AM MED GIVEN PER MAR FLOWSHEET
--- NOTE | 2017-01-30 11:00 | NUR ---
SLEEPING WITH NO SIGNS OF DISTRESS, VSS, DENIES PAIN, NO ACUTE CHANGE FROM PREVIOUS ASSESSMENT
--- NOTE | 2017-01-30 12:24 | NUR ---
CALLED TO ROOM BED [address]ACE, STATES PAIN WHEN SHE BEGINS TO URINATE
--- NOTE | 2017-01-30 14:34 | NUR ---
BATH, SKINCARE, AND LINEN CHANGE COMPLETED, TOLERATED WITHOUT DIFFICULTY, BTB WITH ASSIST X2 PERSONNEL, TOLERATED WITH NO DYSPNEA
--- NOTE | 2017-01-30 14:40 | NUR ---
* Is the patient Alert and Oriented? Yes 0 * How many steps to enter\exit or inside your home? 3 0 * PCP Dr. Sin 0 * Pharmacy [facility] on [address] 0 * Preadmission Environment Home Alone 0 * ADLs Partial Dependent 0 * Partial ADLs (Assistance needed) Ambulation 0 * Equipment Bedside Commode Cane Nebulizer Rolling Walker Shower Chair 0 * List name and contact numbers for known caregivers / representatives who currently or will assist patient after discharge: Daughter - Sherry [phone] Daughter in Law - Willy [phone] 0 * Can the patient safely return to the preadmission environment? Yes 0 * Has this patient been hospitalized within the prior 30 days at any hospital? No Patient Name: NURA EATON Admission Status: Elective Accout number: [id number] Admission Date: 01-24-2017 : 1945 Admission Diagnosis:PERIPHERAL VASCULAR DISEASE, UNSPECIFIED Attending: RAE BABB Current LOS: 6 Planned Disposition: Home Primary Insurance: MEDICARE A & B Discharge Planning Comments: CM met with patient to assess dc plans/needs. Patient states she lives alone and is independent with all ADL's - she uses a cane & walker PRN. She recently completed out patient physical therapy at [facility]. She states she has had home health in the past, but unable to recall agency. At dc, she plans to return home. She may benefit from home health services at discharge. CM will follow & assist as needed. C4 Planner: Kaelyn Amado
--- NOTE | 2017-01-30 14:52 | NUR ---
PHYSICAL THERAPY AT BEDSIDE FOR EVAL, AMBULATED TO CVICU [place]
--- NOTE | 2017-01-30 16:14 | NUR ---
OOB TO BSC WITH ASSIST, TOLERATED TRANSFER WITHOUT DIFFICULTY
--- NOTE | 2017-01-30 18:00 | NUR ---
FAMILY AT BEDSIDE, STATUS UPDATED, AWAITING TRANSFER OUT OF CVICU, NO TOHER NEEDS AT THIS TIME
--- NOTE | 2017-01-30 19:00 | NUR ---
PT LAYING IN BED, AWAKE AND ALERT. DAUGHTER AT BEDSIDE. 2 L O2 VIA NC. S1S2 PRESENT. TELEMETRY MONITORING RATE OF 66. RADIAL PULSES PALP. RT PEDAL PULSE PALP. LT PEDAL PULSE WEAK UPON PALPATION, AUDIBLE VIA DOPPLER. BS ACTIVE X4. MUCOUS MEMBRANES MOIST. SKIN WARM AND DRY. RT GROIN INCISION, DRESSING CDI. BRUISES NOTED TO ARMS BILAT. DISCOLORATION NOTED TO BLE. LT FOREARM PIV PATENT INFUSING NS AT 75 MLS/HR. SEE FLOW SHEET FOR COMPLETE ASSESSMENT. DENIES NEEDS AT THIS TIME. WILL CONTINUE TO MONITOR. BED IN LOWEST POSITION. CALL LIGHT WITHIN REACH.
--- NOTE | 2017-01-30 20:07 | NUR ---
MEDS ADMINISTERED PER EMAR. DENIES NEEDS AT THIS TIME. CALL LIGHT WITHIN REACH. BED IN LOWEST POSITION. WILL CONTINUE TO MONITOR.
--- NOTE | 2017-01-30 21:57 | NUR ---
REPORT RECEIVED FROM SHERI BONDS.
--- NOTE | 2017-01-30 22:23 | NUR ---
ARRIVED TO FLOOR VIA BED, ACCOMPANIED BY HOSPITAL STAFF AND FAMILY. PLACED ON TELEMETRY 79 SR. ASSISSTED TO BEDSIDE COMMODE. CALL LIGHT IN REACH. WILL CONTINUE TO MOTNIOR. SEE NURSE ASSESSMENT.
[2017-01-31] VITALS: BP 180/75
--- NOTE | 2017-01-31 00:52 | NUR ---
SUGAR CANE FARM MANAGER AT BEDSIDE TO OBTAIN VITALS, CALL LIGHT IN REACH. WILL CONTINUE WITH PLAN OF CARE.
[2017-01-31 06:11] LABS: BASOPHILS 0.9 % (0-2); HEMATOCRIT 30.7 % (36.0-48.0); HEMOGLOBIN 9.9 g/dL (12-16); IMMATURE GRANULOCYTES 0.3 % (0-5); LYMPHOCYTES 12.5 % (15-50); MCH 28.6 pg (26.0-34.0); MCHC 32.2 g/dL (31.0-37.0); MEAN PLATELET VOLUME 10.9 fL (7.4-10.4); MONOCYTES 10.8 % (2-11); NEUTROPHILS 70.5 % (40-80); PLATELET COUNT 163 10x3/uL (130-400); RBC 3.46 10x6/uL (4.00-5.40); RDW 16.8 % (11.5-14.5)
[2017-01-31 06:21] LABS: INR 1.03 (0.85-1.17); PROTIME 13.4 SECONDS (11.6-15.0)
[2017-01-31 06:23] LABS: MCV 88.7 fL (80.0-100.0); WBC 5.8 10x3/uL (4.8-10.8)
[2017-01-31 06:34] LABS: CALCIUM 7.8 mg/dL (8.5-10.1); CARBON DIOXIDE 27.9 mmol/L (21.0-32.0); CREATININE - SERUM 1.3 mg/dL (0.6-1.3)
[2017-01-31 06:40] LABS: ANION GAP 12.1 mmol/L (8-16)
--- NOTE | 2017-01-31 06:52 | NUR ---
NO CHANGES FROM PREVIOUS ASSESSMENT, CALL LIGHT IN REACH. WILL CONTINUE TO MONITOR.
--- NOTE | 2017-01-31 07:20 | NUR ---
PT SITTING UP IN BED SLEEPING EASY TO ARROUSE DENIES NEEDS WILL CONT TO MONITOR.
[2017-01-31 08:06] VITALS: BP 189/68
[2017-01-31 13:02] VITALS: BP 183/61
[2017-01-31 16:23] VITALS: BP 144/57
--- NOTE | 2017-01-31 18:17 | NUR ---
PT SITTING UP IN BED TALKING WITH VISITORS DENIES NEEDS
[2017-01-31 20:00] VITALS: BP 159/52
--- NOTE | 2017-01-31 21:47 | NUR ---
PT AWAKE, ALERT, ORIENTED, LYING IN BED, FAMILY AT BEDSIDE, DENIES ANY NEEDS. PT STATES SHE IS WALKING TO BATHROOM WITH A WALKER WHICH IS IMPROVEMENT FROM HAVING TO USE THE BSC. PTS LLE IS WARM TO TOUCH, PINK IN COLOR, PERIPHERAL PULSE PRESENT AND WNL. PT IS C/O PAIN IN THAT LLE. WILL GIVE PRN PAIN MEDICATION WHEN TIME. CONTINUE TO MONITOR CLOSELY, BED LOW, CALL LIGHT IN REACH, SIDE RAILS X 2, HOB 30 DEGREES.
--- NOTE | 2017-01-31 22:29 | NUR ---
FSBS IS 124, RODERICK CRACKERS AND MILK GIVEN FOR HS SNACK. PT ALSO ASKING FOR PRN PAIN MEDICATION. CONTINUE TO MONITOR CLOSELY.
[2017-02-01] VITALS: BP 151/45
[2017-02-01 04:00] VITALS: BP 162/57
--- NOTE | 2017-02-01 05:24 | NUR ---
PT HAS BEEN RESTLESS, UP ALL NIGHT, C/O GREAT LLE PAIN. PT STATES SHE JUST CANNOT GET COMFORTABLE. PT DEMONSTRATED DIFFICULTY SWALLOWING HER NORCO WITH WATER, SO I DID GIVE PT SOME APPLE SAUCE TO HELP GET IT DOWN. PT RESTING AT THIS TIME, NO NEEDS. WILL CONTINUE TO MONITOR CLOSELY.
[2017-02-01 05:25] LABS: BASOPHILS 0.8 % (0-2); EOSINOPHILS 5.2 % (0-7); HEMATOCRIT 30.4 % (36.0-48.0); HEMOGLOBIN 9.9 g/dL (12-16); IMMATURE GRANULOCYTES 0.4 % (0-5); LYMPHOCYTES 15.6 % (15-50); MCH 28.7 pg (26.0-34.0); MCHC 32.6 g/dL (31.0-37.0); MCV 88.1 fL (80.0-100.0); MEAN PLATELET VOLUME 11.1 fL (7.4-10.4); MONOCYTES 9.9 % (2-11); NEUTROPHILS 68.1 % (40-80); RBC 3.45 10x6/uL (4.00-5.40); WBC 7.1 10x3/uL (4.8-10.8)
[2017-02-01 05:26] LABS: PLATELET COUNT 196 10x3/uL (130-400)
[2017-02-01 05:29] LABS: ANION GAP 10.2 mmol/L (8-16); CALCIUM 8.6 mg/dL (8.5-10.1); CARBON DIOXIDE 26.8 mmol/L (21.0-32.0); CREATININE - SERUM 1.4 mg/dL (0.6-1.3)
[2017-02-01 05:30] LABS: INR 1.13 (0.85-1.17); PROTIME 14.4 SECONDS (11.6-15.0)
--- NOTE | 2017-02-01 07:12 | NUR ---
PT LAYING TO LEFT SIDE SLEEPING NO S/S DISTRESS NOTED RR EVEN AND UNLABORED WILL CONT TO MONITOR
[2017-02-01 08:22] VITALS: BP 168/62
--- NOTE | 2017-02-01 10:37 | NUR ---
Nutrition Follow Up: Pt is eating 78% meal avg on a diabetic diet. +BM 01/31/17. Wt stable. Labs and meds reviewed. Rec continue current diet. RD following.
[2017-02-01 11:48] VITALS: BP 176/60
[2017-02-01 16:04] VITALS: BP 142/74
--- NOTE | 2017-02-01 17:57 | NUR ---
PT LAYING TO LEFT SIDE DAUGHTER AT BEDSIDE DENIES NEEDS
[2017-02-01 19:00] VITALS: BP 181/60
--- NOTE | 2017-02-01 22:16 | NUR ---
PATIENT IS ALERT, WATCHING TV. DAUGHTER IS AT BEDSIDE. CALL LIGHT IN REACH. DENIES NEEDS AT THIS TIME.
[2017-02-02] VITALS: BP 193/56
[2017-02-02 04:00] VITALS: BP 195/73
[2017-02-02 05:15] LABS: BASOPHILS 0.7 % (0-2); EOSINOPHILS 4.7 % (0-7); HEMOGLOBIN 9.8 g/dL (12-16); IMMATURE GRANULOCYTES 0.5 % (0-5); LYMPHOCYTES 14.6 % (15-50); MCH 28.6 pg (26.0-34.0); MCHC 32.7 g/dL (31.0-37.0); MCV 87.5 fL (80.0-100.0); MEAN PLATELET VOLUME 10.5 fL (7.4-10.4); MONOCYTES 8.8 % (2-11); NEUTROPHILS 70.7 % (40-80); PLATELET COUNT 201 10x3/uL (130-400); RBC 3.43 10x6/uL (4.00-5.40); RDW 16.9 % (11.5-14.5); WBC 8.4 10x3/uL (4.8-10.8)
[2017-02-02 05:33] LABS: ANION GAP 12.1 mmol/L (8-16); CALCIUM 9.1 mg/dL (8.5-10.1); CARBON DIOXIDE 24.4 mmol/L (21.0-32.0)
[2017-02-02 05:34] LABS: CREATININE - SERUM 0.9 mg/dL (0.6-1.3); POTASSIUM - SERUM 3.5 mmol/L (3.5-5.1)
[2017-02-02 05:36] LABS: INR 1.72 (0.85-1.17); PROTIME 20.1 SECONDS (11.6-15.0)
--- NOTE | 2017-02-02 07:17 | NUR ---
HELPED PT UP TO BATHROOM AT THIS TIME. PT REQUESTS COFFEE GIVEN. PT DENIES ANY OTHER NEEDS WILL CONT TO MONITOR
[2017-02-02 08:00] VITALS: BP 162/60
[2017-02-02 12:00] VITALS: BP 169/66
[2017-02-02 16:00] VITALS: BP 166/48
--- NOTE | 2017-02-02 18:05 | NUR ---
HELPED PT TO THE BATHROOM, PT WENT FOR A SHORT WALK DOWN THE HALLWAY AND BACK WITH HER DAUGHER. PT SITTING UP ON SIDE OF BED PLAYING CARDS WITH HER DAUGHTER DENIES ANY NEEDS.
--- NOTE | 2017-02-02 19:15 | NUR ---
RECEIVED CARE FROM DAY NURSE. PT SITTING UP IN BED WITH COMPANY AT SIDE. REPORTS NO NEEDS AT THIS TIME. CALL LIGHT AT SIDE. IV INFUSING TO PATENT LEFT FA.
[2017-02-02 20:00] VITALS: BP 162/81
--- NOTE | 2017-02-02 23:00 | NUR ---
PT LYING IN BED WITH EYES CLOSED. RESP EVEN AND UNLABORED. CALL LIGHT AT SIDE. WILL CONTINUE TO MONITOR.
[2017-02-03] VITALS: BP 169/70
--- NOTE | 2017-02-03 01:00 | NUR ---
PT RESTING WELL, RESP EVEN AND UNLABORED. CALL LIGHT WITHIN REACH. WILL MONITOR.
[2017-02-03 04:00] VITALS: BP 161/69
[2017-02-03 07:16] LABS: EOSINOPHILS 4.2 % (0-7); HEMATOCRIT 29.8 % (36.0-48.0); HEMOGLOBIN 9.7 g/dL (12-16); IMMATURE GRANULOCYTES 0.3 % (0-5); LYMPHOCYTES 17.5 % (15-50); MCH 28.5 pg (26.0-34.0); MCHC 32.6 g/dL (31.0-37.0); MCV 87.6 fL (80.0-100.0); MEAN PLATELET VOLUME 10.5 fL (7.4-10.4); PLATELET COUNT 224 10x3/uL (130-400); RDW 16.8 % (11.5-14.5); WBC 7.2 10x3/uL (4.8-10.8)
[2017-02-03 07:29] LABS: INR 1.88 (0.85-1.17); PROTIME 21.6 SECONDS (11.6-15.0)
[2017-02-03 07:33] LABS: ANION GAP 13.1 mmol/L (8-16); CALCIUM 9.1 mg/dL (8.5-10.1); CARBON DIOXIDE 24.3 mmol/L (21.0-32.0); POTASSIUM - SERUM 3.4 mmol/L (3.5-5.1)
--- NOTE | 2017-02-03 07:54 | NUR ---
AWAKE AND ALERT WITH RESPIRATIONS EVEN AND NON LABORED. CALL LIGHT IN ELIZABETH, DENIES NEEDS AT THIS TIME. WILL CONTINUE WITH PLAN OF CARE.
[2017-02-03 08:00] VITALS: BP 167/56
--- NOTE | 2017-02-03 11:38 | NUR ---
BLOOD SUGAR 233 AT THIS TIME. PT COVERED WITH 4 UNITS PER SLIDING SCALE. DENIES FURTHER NEEDS AT THIS TIME. WILL CONTINUE WITH PLAN OF CARE.
--- NOTE | 2017-02-03 14:49 | NUR ---
PRN NORCO ADMINISTERED AT THIS TIME FOR PAIN.
--- NOTE | 2017-02-03 15:58 | NUR ---
IV TO RIGHT HAND TENDER DUE TO PT BUMPING IT AGAINST THINGS. IV D/C WITH CATH TIP INTACT.
[2017-02-03 16:00] VITALS: BP 168/68
--- NOTE | 2017-02-03 18:00 | NUR ---
DENIES NEEDS AT THIS TIME. CALL LIGHT IN REACH, WILL CONTINUE WITH PLAN OF CARE.
[2017-02-03 19:00] VITALS: BP 163/51
--- NOTE | 2017-02-03 19:15 | NUR ---
PT LAYING IN BED AWAKE AND ALERT. DAUGHTER AT BEDSIDE. SHIFT ASSESSMENT COMPLETED PER FLOW SHEET, SEE FOR DETAILS. PT IS HARD OF HEARING AND WEARS HEARING AIDS. S1S2 PRESENT. RADIAL PULSES PALP. RT PEDAL PULSE PALP. LT PEDAL PULSE WEAK TO PALPATION. TELEMETRY MONITORING HR OF 74 SINUS RHYTHM. BS ACTIVE X4. REPORT NO PROBLEMS VOIDING. BLE WEAKNESS. SKIN WARM AND DRY. RT GROIN INCISION, BRUISING NOTED. BLE DISCOLORATION NOTED. LT FOREARM PIV INFUSING NS AT 75 MLS/HR. BED IN LOWEST POSITION. SIDE RAILS UP X2. CALL LIGHT WITHIN REACH. WILL CONTINUE TO MONITOR.
--- NOTE | 2017-02-03 20:29 | NUR ---
PT LAYING IN BED, AWAKE, NO VISITORS AT THIS TIME. MEDS ADMINISTERED PER EMAR. NO PROBLEMS NOTED WHEN TAKING MEDS. DENIES NEEDS AT THIS TIME. CALL LIGHT WITHIN REACH. BED IN LOWEST POSITION. WILL CONTINUE TO MONITOR.
--- NOTE | 2017-02-03 22:30 | NUR ---
ASSISSTED PT TO BATHROOM, 150 MLS OF CLEAR YELLOW URINE NOTED. ASSISSTED PT BACK IN BED. GAIT UNSTEADY. PT USES WALKER. REPORTS PAIN ON LT ANKLE UPON AMBULATION. PAIN MEDICATION HAS BEEN ADMINISTERED AT 2105. WILL CONTINUE TO MONITOR PAIN.
--- NOTE | 2017-02-03 22:38 | NUR ---
DR. BARRIGA AT BEDSIDE, PAIN ON LT ANKLE/LEG ADDRESSED. NEW ORDERS RECEIVED. PT DENIES FURTHER NEEDS AT THIS TIME. CALL LIGHT WITHIN REACH. BED IN LOWEST POSITION. WILL CONTINUE TO MONITOR.
--- NOTE | 2017-02-03 23:00 | NUR ---
RADIOLOGY PERSONNEL X2 HERE TO TAKE PT FOR CT SCAN, PT TAKEN VIA BED.
--- NOTE | 2017-02-03 23:20 | NUR ---
PT BACK IN ROOM FROM CT SCAN, NO DISTRESS NOTED. DENIES NEEDS AT THIS TIME. CALL LIGHT WITHIN REACH. BED IN LOWEST POSITION. WILL CONTINUE TO MONITOR.
[2017-02-04] VITALS: BP 152/49
--- NOTE | 2017-02-04 00:05 | NUR ---
DR. BARRIGA AT BEDSIDE. NEW ORDERS RECEIVED. CALL LIGHT WITHIN REACH. BED IN LOWEST POSITION. WILL CONTINUE TO MONITOR.
--- NOTE | 2017-02-04 00:25 | NUR ---
ASSISSTED PT TO BATHROOM 200 MLS OF CLEAR YELLOW URINE NOTED. ASSISSTED PT BACK IN BED. PRN DILAUDID ADMINISTERED PER EMAR, SEE FOR DETAILS. TEACHING PROVIDED ON SIDE EFFECTS, INSTRUCTED PT TO NOT GET OUT OF BED ALONE AND TO PUSH CALL LIGHT IF SHE NEEDS ANYTHING, PT VERBALIZED UNDERSTANDING. DENIES FURTHER NEEDS. CALL LIGTH WITHIN REACH. SIDE RAILS UP X2. BED IN LOWEST POSITION. WILL CONTINUE TO MONITOR.
--- NOTE | 2017-02-04 02:00 | NUR ---
PT LAYING IN BED RESTING, ASSISSTED PT WITH HEARING AID BATTERY CHANGE. DENIES FURTHER NEEDS. CALL LIGHT WITHIN REACH. BED IN LOWEST POSITION. WILL CONTINUE TO MONITOR.
--- NOTE | 2017-02-04 04:00 | NUR ---
PT LAYING IN BED RESTING, NO ACUTE CHANGES NOTED. WILL CONTINUE TO MONITOR. CALL LIGHT WITHIN REACH. BED IN LOWEST POSITION.
[2017-02-04 04:22] VITALS: BP 169/68
[2017-02-04 04:53] LABS: INR 1.79 (0.85-1.17); PROTIME 20.8 SECONDS (11.6-15.0)
--- NOTE | 2017-02-04 06:07 | NUR ---
PT LAYING IN BED AWAKE, MEDS ADMINISTERED PER EMAR. DIET COKE PROVIDED PER REQUEST. DENIES FURTHER NEEDS. CALL LIGHT WITHIN REACH. BED IN LOWEST POSITION. WILL CONTINUE TO MONITOR.
--- NOTE | 2017-02-04 07:00 | NUR ---
REPORT RECEIVED FROM OFF GOING NURSE. PT IN BED WITH BREATHING NORMALLY AND UNLABORED. SEE FLOW SHEET FOR ASSESSMENT. PERIPHREAL PULSES PALPABLE. LEFT PEDIAL PULSE SIGNIFIGANTLY WEAKER THAN THE RIGHT BUT PALPABLE. NO REDDNESS/EDEMA NOTED. C/O LEG PAIN. PRN DILAUDID GIVEN. RIGHT GROIN BRUISE AND OLD INCISION SCABBED OVER. BREAHTING NORMAL AND UNLABORED. CALL LIGHT IN REACH. WILL CONT POC
[2017-02-04 08:00] VITALS: BP 189/74
[2017-02-04 12:00] VITALS: BP 183/78
--- NOTE | 2017-02-04 12:00 | NUR ---
NO CHANGES FROM PREVIOUS ASSEMENT. DAUGHTER AT BEDSIDE. ALL PULSES PALPABLE. BREATHING NORMAL AND UNLABOERD. CALL LIGHT IN REACH. WILL CONT POC.
--- NOTE | 2017-02-04 15:00 | NUR ---
NO CHANGES FROM PREVIOUS ASSESSMENT. DR ROSALES INCRESED COUMADIN FROM 4 TO 5MG. PT REQUESTED PAIN MEDICATION FOR LEG PAIN. NORCO GIVEN WITH EFFECTIVESS WITH NO ASE NOTED. CALL LIGHT IN REACH. WILL CONT POC
[2017-02-04 16:00] VITALS: BP 130/52
[2017-02-04 19:13] VITALS: BP 161/61
--- NOTE | 2017-02-04 20:51 | NUR ---
HS MEDS GIVEN WITH FRESH ICE WATER, BS 190, COVERED PER S/S. NORCO 2 TABS GIVEN FOR C/O PAIN TO LEFT LEG, RATES PAIN AT AN 8 ON PAIN SCALE. BACK TO BED WITH ASSIST.
--- NOTE | 2017-02-04 22:51 | NUR ---
IN BED RESTING, NO S/S DISTRESS NOTED.
[2017-02-05] VITALS: BP 173/72
--- NOTE | 2017-02-05 03:35 | NUR ---
NORCO 2 TABS GIVEN AT PT REQUEST FOR C/O PAIN TO LEG. APRESOLINE 20 MG GIVEN IV FOR ELEVATED BP OF 191/75. WILL CONT TO MONITOR.
--- NOTE | 2017-02-05 04:26 | NUR ---
IMMIGRATION PARALEGAL AT BEDSIDE TO OBTAIN VITALS, CALL LIGHT IN REACH. WILL CONTINUE WITH PLAN OF CARE.
[2017-02-05 04:28] VITALS: BP 191/75
[2017-02-05 05:27] LABS: INR 1.65 (0.85-1.17); PROTIME 19.4 SECONDS (11.6-15.0)
[2017-02-05 05:29] LABS: ANION GAP 12.6 mmol/L (8-16); CALCIUM 9.2 mg/dL (8.5-10.1); CARBON DIOXIDE 27.1 mmol/L (21.0-32.0); CREATININE - SERUM 1.1 mg/dL (0.6-1.3); POTASSIUM - SERUM 3.7 mmol/L (3.5-5.1)
--- NOTE | 2017-02-05 07:00 | NUR ---
REPORT RECEIVED FROM OFF GOING RN. PT IN ROOM WATCHING TV. SEE ASSESSMENT FLOW SHEET. LEFT DORSALLIS PEDIS NON PALPABLE BUT ASCULTATED ON DOPPLER. BREATHING NORMAL AND UNLABORED. 0 S/SX OF DISTRESS/DISCOMFORT NOTED. CALL LIGHT IN REACH. WILL CONT POC
[2017-02-05 07:58] VITALS: BP 138/50
--- NOTE | 2017-02-05 09:00 | NUR ---
C/O LEFT LEG PAIN AFTER AMBULATING WITH PT. PRN NORCO GIVEN. NO S/SX OF ASE NOTED. CALL LIGHT IN REACH. WILL CONT POC.
--- NOTE | 2017-02-05 09:58 | NUR ---
Nutrition Follow Up: Pt is eating 76% meal avg on a diabetic diet. Wt loss noted - likely r/t fluid. +BM 02/02/17. Labs reviewed - Glucose continues elevated. Meds noted including Bumex. Rec continue current diet. RD following.
[2017-02-05 11:16] VITALS: BP 133/50
--- NOTE | 2017-02-05 12:00 | NUR ---
AT BEDSIDE IN CHAIR WATCHING TV. DENIES PAIN AT THIS TIME. BREATHING NORMAL AND UNLABORED. CALL LIGHT IN REACH. WILL CONT POC
--- NOTE | 2017-02-05 15:00 | NUR ---
NO CHANGES FROM PREVIOUSE ASSESSMENT. DENIES PAIN AT THIS TIME. LLE PULSE ASCULTATED VIA DOPPLER. OTHER PULSES PALPABLE. CALL LIGHT IN REACH. WILL CONT POC
--- NOTE | 2017-02-05 15:12 | NUR ---
Patient Name: NURA EATON Encounter No: [id number] : 1945 Primary Insurance: MEDICARE A & B Anticipated DC Date: 02-05-2017 Planned Disposition: [facility] Facility External Planned Provider: [facility], MEDICARE REHAB BED DCP follow-up note: CM RECEIVED ORDER FOR REHAB / PLACEMENT. CM SPOKE TO PT AND DAUGHTER IN ROOM, DISCUSSED DISCHARGE PLANNING, REHAB LOCATIONS, TYPES OF REHABS AND PROVIDERS. PT DOES NOT THINK SHE CAN PARTICIPATE IN THREE HOURS OF THERAPY PER DAY AND WOULD LIKE REFERRAL TO [facility]. CHOICE SIGNED, IMPORTANT MESSAGE FROM MEDICARE PROVIDED AND EXPLAINED. CM CALLED [facility], , SPOKE TO SAMY WHO REPORTS HAVING REHAB BED AVAILABLE AND WILL SCREEN PT FOR REHAB ADMISSION. CM FAXED REFERRAL TO [facility] AT [phone]. CM WAITING ADMISSION DETERMINATION FOR REHAB SERVICES FROM [facility]. Ronak De Oliveira, CASE MANAGEMENT
[2017-02-05 15:41] VITALS: BP 165/48
[2017-02-05 19:00] VITALS: BP 139/64
--- NOTE | 2017-02-05 19:20 | NUR ---
SITTING UP IN BED TALKING TO VISITOR. DENIES PAIN OR ANY NEEDS. ASSESSED LIGHT PULSE IN LEFT FOOT. STATED FOOT IS SORE. IV IN RT FA WITH NS INFUSING AT 75ML/HR.HAS CALL LIGHT AND BEDSIDE TABLE IN REACH.
--- NOTE | 2017-02-06 01:30 | NUR ---
C/O LEG PAIN. ADMIN NORCO PO PER REQUEST. NO OTHER NEEDS VOICED.
[2017-02-06 04:00] VITALS: BP 111/66
[2017-02-06 06:26] LABS: INR 1.82 (0.85-1.17); PROTIME 21.1 SECONDS (11.6-15.0)
[2017-02-06 06:39] LABS: ANION GAP 11.3 mmol/L (8-16); CALCIUM 9.2 mg/dL (8.5-10.1); CARBON DIOXIDE 28.3 mmol/L (21.0-32.0); CREATININE - SERUM 1.2 mg/dL (0.6-1.3); POTASSIUM - SERUM 3.6 mmol/L (3.5-5.1)
[2017-02-06 07:51] VITALS: BP 167/68
--- NOTE | 2017-02-06 10:50 | NUR ---
Patient Name: NURA EATON Encounter No: [id number] : 1945 Primary Insurance: MEDICARE A & B Anticipated DC Date: 02-05-2017 Planned Disposition: [facility] External Planned Provider: [facility], MEDICARE REHAB BED DCP follow-up note: CM CALLED [facility], , SPOKE TO SAMY WHO REPORTS HAVING REHAB BED AVAILABLE, PT'S INSURANCE IS GOOD FOR REHAB, REFERRAL WAS RECEIVED AND NURSING IS REVIEWING THE REFERRAL NOW. [facility] CAN DO LOVENOX INJECTIONS AND MONITOR INR AT THE FACILITY. CM WAITING ADMISSION DETERMINATION FOR REHAB SERVICES FROM [facility]. Ronak De Oliveira, CASE MANAGEMENT
[2017-02-06 15:32] VITALS: BP 144/34
--- NOTE | 2017-02-06 18:31 | NUR ---
PATIENT IS LYING IN BED IN NO DISTRESS. BED IN LOW POSITION. SIDERAILS X2. CALL LIGHT IN EASY REACH. AMBULATES WITH WALKER.
--- NOTE | 2017-02-06 19:51 | NUR ---
RESUMED CARE OF PT, LYING IN BED RESPIRATIONS EVEN AND UNLABORED ON ROOM AIR. 74 SR ON TELEMETRY. LEFT FOREARM INFUSING NS @ 75. LEFT UPPER ARM DRESSING C/D/I, ATTEMPTED TO REMOVED COBAN BUT GAUZE HAD FRESH BLOOD, REAPPLIED COBAN AND WILL CONTINUE TO MONITOR. NO NEEDS AT THIS TIME, CALL LIGHT IN REACH. WILL CONTINUE TO MONITOR. SEE NURSE ASSESSMENT.
[2017-02-06 20:52] VITALS: BP 157/52
[2017-02-07 00:16] VITALS: BP 152/45
--- NOTE | 2017-02-07 01:54 | NUR ---
LYING IN BED WITH EYES CLOSED, CALL LIGHT IN REACH. WILL CONTINUE WITH PLAN OF CARE.
[2017-02-07 05:33] LABS: INR 3.13 (0.85-1.17); PROTIME 32.5 SECONDS (11.6-15.0)
[2017-02-07 05:45] LABS: CALCIUM 8.7 mg/dL (8.5-10.1); CARBON DIOXIDE 27.8 mmol/L (21.0-32.0); CREATININE - SERUM 1.1 mg/dL (0.6-1.3); POTASSIUM - SERUM 3.8 mmol/L (3.5-5.1)
--- NOTE | 2017-02-07 06:27 | NUR ---
NO CHANGES FROM PREVIOUS ASSESSMENT, CALL LIGHT IN REACH. WILL CONTINUE TO MONITOR.
[2017-02-07 08:00] VITALS: BP 154/58
--- NOTE | 2017-02-07 08:00 | NUR ---
AM ROUNDS COMPLETED. INTRODUCED MYSELF TO PT PRIMARY RN FOR TODAYS SHIFT. PT A&O SITTING UP IN BEDSIDE CHAIR. SHIFT ASSESSMENT COMPLETED. PT IS HOPING TO BE DISCHARGED TODAY SHE STATES. WILL CONTINUE TO WATCH FOR ORDERS. NO CURRENT NEEDS AT THIS TIME. CL IN REACH.
[2017-02-07] MEDS ORDERED: COUMADIN6 MG PO (08:44)
--- NOTE | 2017-02-07 08:56 | NUR ---
SPOKE WITH YANIV/RN WITH DR. CUENCA VIA PHONE TO ADVISE PT IS DISCHARGING TO [facility]. OK TO DC. NO F/U NEEDED.
--- NOTE | 2017-02-07 09:42 | NUR ---
PT UP OUT OF ROOM AMBULATING WITH WALKER WITH DEPUTY MANAGER VICTOR M. PT DENIES ANY CURRENT NEEDS. WAITING ON D/C PAPERS.
--- NOTE | 2017-02-07 10:43 | NUR ---
Patient Name: NURA EATON Encounter No: [id number] : 1945 Primary Insurance: MEDICARE A & B Anticipated DC Date: 02-05-2017 Planned Disposition: [facility] Facility External Planned Provider: [facility], MEDICARE REHAB BED DCP follow-up note: CM RECEIVED DISCHARGE ORDER, CALLED AND SPOKE TO SAMY AT [facility], , WHO REPORTS THEY WILL ACCEPT PT TODAY AND WILL CONTACT FAMILY TO ASSIST WITH INTAKE PAPERWORK. CM SPOKE TO PT IN ROOM WHO WAS AWARE SHE HAS TALKED TO HER DAUGHTER AND [facility] VIA PHONE. PT REPORTS [facility] WILL PICK HER UP. PT IN AGREEMENT WITH DISCHARGE TO REHAB. CM FAXED DISCHARGE INFORMATION TO [facility] AT [phone]. NURSE REPORT TO BE CALLED TO [facility], . [facility] TO ARRANGE VAN TRANSPORTATION. Ronak De Oliveira, CASE MANAGEMENT
--- NOTE | 2017-02-07 11:14 | NUR ---
FSBS 222 PT REC'D 4 UNITS PER SS INSULIN. ASSISTED PT TO BR SHE VOIDED CLEAR YELLOW URINE. PROVIDED PT WITH FLU VACCINE REQUESTED AND PROVIDED HER WITH INFORMATION SHEET PER POLICY. D/C PTS PIV WITH CATH TIP FULLY INTACT AND REMOVED TELEMETRY BACK TO [employer]. PT SITTING UP IN BED READY FOR LUNCH AND AWAITING D/C PAPERS. NO FURTHER NEEDS AT THIS TIME. WILL CPOC.
--- NOTE | 2017-02-07 11:40 | NUR ---
DISCHARGE TEACHING PROVIDED AND PAPERS SIGNED. WENT OVER WITH DAUGHTER WELL AT BEDSIDE. DISCHARGE REPORT CALLED TO [facility] AND NOW JUST WAITING ON VAN TRANSPORTATION. NO CURRENT NEEDS. WILL CPOC.
--- NOTE | 2017-02-07 14:09 | NUR ---
[facility] STAFF HERE NOW TO TAKE PT. NO FURTHER NEEDS.
== END 2017-02-07 14:11 | DRG 272 ==
LOC: D.CT 11:32 → D.M2 11:32 → D.CT 15:54 → D.M2 15:55 → D.CVICU 15:55 → D.CT 18:00 → D.CVICU 01-28 16:47 → D.M2 01-30 21:57
PROVIDERS: General Practice; ADMIT Radiology Diagnostic Radiology
PROC: 047L3ZZ Dilation of Left Femoral Artery, Percutaneous Approach (ICD-10-PCS; 2017-01-25)
PROC: B41G1ZZ Fluoroscopy of Left Lower Extremity Arteries using Low Osmolar Contrast (ICD-10-PCS; principal; 2017-01-25 08:00)
PROC: 047L3DZ Dilation of Left Femoral Artery with Intraluminal Device, Percutaneous Approach (ICD-10-PCS; 2017-01-28)
PROC: 3E05317 Introduction of Other Thrombolytic into Peripheral Artery, Percutaneous Approach (ICD-10-PCS; 2017-01-28)
PROC: 04CQ3ZZ Extirpation of Matter from Left Anterior Tibial Artery, Percutaneous Approach (ICD-10-PCS; 2017-01-29)
PROC: 047N3DZ Dilation of Left Popliteal Artery with Intraluminal Device, Percutaneous Approach (ICD-10-PCS; 2017-01-29)
PROC: 04CU3ZZ Extirpation of Matter from Left Peroneal Artery, Percutaneous Approach (ICD-10-PCS; 2017-01-29)
PROC: 04CQ3ZZ Extirpation of Matter from Left Anterior Tibial Artery, Percutaneous Approach (ICD-10-PCS; 2017-01-29)
PROC: 047L3DZ Dilation of Left Femoral Artery with Intraluminal Device, Percutaneous Approach (ICD-10-PCS; 2017-01-29)
DX: I70.312 Atherosclerosis of unspecified type of bypass graft(s) of the extremities with intermittent claudication, left leg (principal); E11.51 Type 2 diabetes mellitus with diabetic peripheral angiopathy without gangrene; I11.0 Hypertensive heart disease with heart failure; I50.9 Heart failure, unspecified; Z95.2 Presence of prosthetic heart valve; Z79.01 Long term (current) use of anticoagulants; Z72.0 Tobacco use

== ENCOUNTER → 2017-02-20 14:16 | Outpatient (CLI) | payer MEDICARE ==
[2017-01-29 10:38] VITALS: BMI 30.4
[~2017-02-20 14:16] MED LIST changes: +COUMADIN6 MG PO
== END | disposition home or self-care (01) ==
LOC: D.US 14:16
DX: M79.662 Pain in left lower leg (principal)

== ENCOUNTER → 2017-03-08 11:03 | Outpatient (CLI) | payer MEDICARE ==
[2017-01-29 10:38] VITALS: BMI 30.4
[2017-03-08 11:53] LABS: INR 2.68 (0.85-1.17); PROTIME 28.7 SECONDS (11.6-15.0)
== END | disposition home or self-care (01) ==
LOC: D.LABREF 11:03
PROVIDERS: Internal Medicine Cardiovascular Disease
DX: Z51.81 Encounter for therapeutic drug level monitoring (principal); Z79.01 Long term (current) use of anticoagulants

== ENCOUNTER 2017-04-04 11:26 | Emergency (ER) | payer MEDICARE ==
[2017-01-29 10:38] VITALS: BMI 30.4
[2017-04-04 12:13] LABS: BASOPHILS 0.8 % (0-2); EOSINOPHILS 6.8 % (0-7); HEMATOCRIT 34.2 % (36.0-48.0); HEMOGLOBIN 10.5 g/dL (12-16); IMMATURE GRANULOCYTES 0.1 % (0-5); LYMPHOCYTES 17.3 % (15-50); MCH 27.7 pg (26.0-34.0); MCHC 30.7 g/dL (31.0-37.0); MCV 90.2 fL (80.0-100.0); MEAN PLATELET VOLUME 10.7 fL (7.4-10.4); MONOCYTES 7.4 % (2-11); NEUTROPHILS 67.6 % (40-80); PLATELET COUNT 263 10x3/uL (130-400); RBC 3.79 10x6/uL (4.00-5.40); RDW 16.3 % (11.5-14.5)
[2017-04-04 12:31] LABS: ALBUMIN 3.3 g/dL (3.4-5.0); ANION GAP 14.1 mmol/L (8-16); BILIRUBIN - TOTAL 0.31 mg/dL (0.2-1.3); CALCIUM 9.4 mg/dL (8.5-10.1); CARBON DIOXIDE 26.7 mmol/L (21.0-32.0); CREATININE - SERUM 1.4 mg/dL (0.6-1.3); POTASSIUM - SERUM 4.8 mmol/L (3.5-5.1); PROTEIN - SERUM 8.4 g/dL (6.4-8.2)
== END 2017-04-04 14:17 | disposition home or self-care (01) ==
LOC: D.ER 11:26
PROVIDERS: Emergency Medicine
DX: J44.1 Chronic obstructive pulmonary disease with (acute) exacerbation (principal); I10 Essential (primary) hypertension; E11.9 Type 2 diabetes mellitus without complications; Z79.4 Long term (current) use of insulin; R00.1 Bradycardia, unspecified